=== PATIENT | female | born 1940 | race Caucasian/White ===

== ENCOUNTER 2024-05-19 20:13 | Inpatient (IN) | payer MEDICARE, SELFPAY ==
--- NOTE | 2024-05-19 20:14 | ED.GENADULT ---
HPI - General Adult General Time Seen by Provider: 20:14 Date Seen: 05/19/24 Chief complaint: Abdominal Pain Stated complaint: Abdominal pain--diarrhea, vomiting Time Seen by Provider: 05/19/24 20:14 Source: patient, RN notes reviewed and old records reviewed Mode of arrival: ambulatory Limitations: no limitations History of Present Illness HPI narrative: 83-year-old female who presents today with nausea, vomiting, diarrhea. This started day before yesterday. Patient notes couple episodes of vomiting as well as diarrhea, generalized abdominal pain localized in the right lower quadrant. No fevers, no known ill contacts. No blood in the stool and no blood in her vomit. Denies chest pain, shortness of breath, fevers, urinary symptoms. Has not taken anything for this. Related Data Allergies Allergy/AdvReac Type Severity Reaction Status Date / Time No Known Drug Allergies Allergy Verified 05/19/24 20:27 [facility] Social History Smoking Status: Never smoker Do you use any of these nicotine containing products: None Second hand tobacco smoke exposure: No How often do you have a drink containing alcohol: never AUDIT-C Alcohol total score: 0 Non-prescribed substance use: denies use service: No Exam Narrative: Exam Narrative: General: Well-developed and well-nourished, no acute distress Head: Atraumatic and normocephalic Eyes: Pupils are equal reactive, extraocular motions intact, conjunctiva clear ENT: External nose and ears are normal, posterior pharynx without erythema or exudate Neck: No midline cervical tenderness, full spontaneous range of motion the neck, trachea midline, no adenopathy Heart: Tachycardic, 3 of 6 systolic murmur, occasional extrasystole Lungs: Clear to auscultation bilaterally without wheezes or crackles Abdomen: Soft, mild diffuse tenderness with right lower quadrant tenderness, nondistended with active bowel sounds Musculoskeletal: No tenderness, deformity, or edema Neurologic: Awake, alert, and oriented x3, no gross focal neurologic deficits, cranial nerves intact as tested Psych: Mood and affect are appropriate Skin: No rashes Const: Vital Signs, click to edit/add: Vital Signs - 24 hr 05/19/24 20:18 05/19/24 22:30 05/19/24 23:00 Temperature 98.4 F Pulse Rate [Right Radial] 107 H 114 H 113 H Respiratory Rate 16 20 18 Blood Pressure [Ri ght Upper Arm] 134/81 144/73 H 149/82 H Pulse Oximetry 96 93 93 Oxygen Delivery Me thod Room Air Room Air Room Air Course Course ED Course: Reviewed most recent primary care visit from December 2023 which was for hip pain radiating into the back, thought to be related to piriformis syndrome, and patient was started on Solu-Medrol. Patient presents today with vomiting, abdominal pain, on and diarrhea. On initial exam she is tachycardic but afebrile with normal blood pressure. She has generalized abdominal tenderness with some localization of the right lower quadrant. Patient does still have for intra-abdominal organs. Labs ordered along with Zofran, fluids, CT of the abdomen and pelvis. Reevaluation(s) Time of Reevaluation #1: 21:42 Reevaluation #1: EKG independently interpreted by me performed at 9:37 p.m. demonstrates sinus rhythm rate 92, first-degree AV block with left bundle-branch block, no acute ischemic changes, QTC 494, ND 224. Compared to prior of August 2018, left bundle-branch block is new. Labs independently interpreted by me with leukocytosis white blood cell count 19.2, lactate 1.5. Time of Reevaluation #2: 22:02 Reevaluation #2: Labs independently interpreted by me with normal hepatic panel, normal lipase, mild hyponatremia. Time of Reevaluation #3: 22:20 Reevaluation #3: A CT scan of the abdomen and pelvis independently interpreted by me demonstrates findings of acute appendicitis with no free air noted.. Will discuss with General surgery once CT scan is read. 22:[address] scan agrees with my initial interpretation of acute appendicitis without perforation. Care was discussed with Dr. Leon, general surgery. Patient will be given Zosyn and plan for admission and likely surgery in the morning. 23:42 care discussed with [facility] hospitalist for admission Vital Signs Vital signs: Initial Vital Signs Temperature 98.4 F 05/19/24 20:18 Temperature Source Temporal Artery Scan 05/19/24 20:18 Pulse Rate 107 H 05/19/24 20:18 Pulse Rhythm Regular 05/19/24 20:18 Respiratory Rate 16 05/19/24 20:18 Blood Pressure 134/81 05/19/24 20:18 Blood Pressure Mean 98 05/19/24 20:18 Pulse Oximetry 96 05/19/24 20:18 Oxygen Delivery Method Room Air 05/19/24 20:18 Vital Signs Temperature 98.4 F 05/19/24 20:18 Pulse Rate 107 H 05/19/24 20:18 Respiratory Rate 16 05/19/24 20:18 Blood Pressure 134/81 05/19/24 20:18 Pulse Oximetry 96 05/19/24 20:18 Oxygen Delivery Method Room Air 05/19/24 20:18 Temperature 98.4 F 05/19/24 20:18 Pulse Rate 113 H 05/19/24 23:00 Respiratory Rate 18 05/19/24 23:00 Blood Pressure 149/82 H 05/19/24 23:00 Pulse Oximetry 93 05/19/24 23:00 Oxygen Delivery Method Room Air 05/19/24 23:00 Medications Administered Medications: Generic Name Dose Route Start Last Admin Trade Name Freq PRN Reason Stop Dose Admin Sodium Chloride 1,000 mls @ 1,000 mls/hr 05/19/24 21:00 05/19/24 22:42 0.9 % Sodium Chloride 1000 Ml IV 05/19/24 21:59 Infused .Q1H JOSEPH Infusion Piperacillin Sod/Tazobactam 100 mls @ 100 mls/hr 05/19/24 22:42 05/19/24 22:57 Sod 3.375 gm/ Sodium Chloride IVPB 05/19/24 22:43 100 mls/hr ONCE ONE Administration Ondansetron HCl 4 mg 05/19/24 20:54 05/19/24 21:25 Ondansetron 2 Mg/Ml Inj IVP 05/19/24 20:55 4 mg ONCE ONE Administration Medical Decision Making Lab Data Labs: Lab Results 05/19/24 Range/Units 21:15 WBC 19.20 H (4.50-11.00) K/uL RBC 4.72 (4.00-5.20) m/uL Hgb 14.5 (12.0-16.0) gm/dL Hct 42.8 (33.0-51.0) % MCV 91 (80-100) fL MCH 31 (26-34) pg MCHC 34 (32-36) gm/dL RDW Coeff of Isa 13.3 (11.5-15.5) % Plt Count 204 (140-440) K/uL Neut % (Auto) 87.7 H (42.0-72.0) % Lymph % (Auto) 5.8 L (20-44) % [place] % (Auto) 5.8 (0.0-11.0) % Eos % (Auto) 0.1 (0.0-7.0) % Baso % (Auto) 0.1 (0.0-3.0) % Neut # (Auto) 16.80 H (1.7-7.0) K/uL Lymph # (Auto) 1.10 (0.90-2.90) K/uL [place] # (Auto) 1.10 H (0.00-0.90) K/UL Eos # (Auto) 0.00 (0.00-0.50) K/uL Baso # (Auto) 0.00 (0.00-0.30) K/uL Abs Immat Gran (auto) 0.10 (0.00-0.30) K/uL Imm/Tot Granulo (auto) 0.5 % Sodium 129 L (135-149) mmol/L Potassium 3.7 (3.6-5.1) mmol/L Chloride 99 (96-114) mmol/L Carbon Dioxide 21 (20-32) mmol/L Anion Gap 9 (7-15) mEq/L BUN 13 (7-30) mg/dL Creatinine 0.7 (0.5-1.5) mg/dL Estimated Creat Clear 41.49 Estimated GFR 85 ml/min Glucose 173 H (60-115) mg/dL Lactate 1.5 (0.5-1.9) mmol/L Calcium 9.5 (8.4-10.6) mg/dL Magnesium 1.8 (1.5-2.6) mg/dL Total Bilirubin 2.0 H (0.1-1.5) mg/dL Direct Bilirubin 0.4 (0.0-0.5) mg/dL AST 16 (12-35) U/L ALT 22 (4-35) U/L Alkaline Phosphatase 74 (40-150) U/L Total Protein 6.7 (6.0-8.3) g/dL Albumin 4.0 (3.3-5.0) g/dL Lipase 254 (23-300) U/L Discharge Plan Discharge Clinical Impression: Acute appendicitis, History of coronary angioplasty with insertion of stent
[2024-05-19 20:18] VITALS: BP 134/81; PULSE 107; RESP 16; TEMP 36.9; O2SAT 96; BMI 27.4
--- NOTE | 2024-05-19 20:54 | CRLHL7_ITS ---
For Patients: As a result of the Century Cures Act, medical imaging exams and procedure reports are released immediately into your electronic medical record. You may view this report before your referring provider. If you have questions, please contact your health care provider. INDICATION: Right lower quadrant abdominal pain, diarrhea. TECHNIQUE: CT abdomen and pelvis acquired with 89 cc of Isovue 370 IV contrast. COMPARISON: CT chest, abdomen, and pelvis 09/05/2018. FINDINGS: Lower chest: Mild bibasilar scarring versus atelectasis. Coronary artery calcification. Liver: Unremarkable. Normal in size and attenuation. No suspicious masses. Gallbladder and bile ducts: Unremarkable. No stones or inflammation. No biliary dilatation. Pancreas: Unremarkable. No mass or inflammation. Spleen: Unremarkable. Normal in size. No masses. Adrenal glands: Unremarkable. No nodules. Kidneys: Unremarkable. No suspicious masses, stones, or hydronephrosis. GI tract: Dilated, fluid-filled appendix measuring up to 12 mm with moderate to severe surrounding inflammatory changes. No evidence for perforation or abscess formation. The small bowel is unremarkable. Small air-fluid levels throughout the colon without mural thickening. Vasculature: Normal caliber abdominal aorta with moderate to severe atherosclerotic calcification. Mesenteric arteries are patent. Lymph nodes: No lymphadenopathy. Peritoneum/Abdominal Wall: Unremarkable. No free air or significant free fluid. Pelvis: Unremarkable. Bones: Chronic mild L2 compression fracture. Multilevel spondylosis. No acute findings. IMPRESSION: 1. Acute uncomplicated appendicitis in the right lower quadrant. 2. Multiple small air-fluid levels throughout the colon without mural thickening, possibly reactive to the patient`s acute appendicitis or represent a concomitant diarrheal illness. Please note that all CT scans at this facility use dose modulation, iterative reconstruction, and/or weight-based dosing when appropriate to reduce radiation dose to as low as reasonably achievable. Dictated by Aaron Hobbs MD @ 05/19/2024 10:39:28 PM (Electronically Signed)
[2024-05-19] MEDS: ONDANSETRON 2 MG/ML inj 4 MG IVP (21:25)
[2024-05-19] MEDS: 0.9 % SODIUM CHLORIDE 1000 ml 1,000 ML IV (21:26)
[2024-05-19 21:32] LABS: Lactate* 1.5 mmol/L (0.5-1.9)
[2024-05-19 21:33] LABS: Basophils Percent Auto 0.1 % (0.0-3.0); Eosinophils Percent Auto 0.1 % (0.0-7.0); Hematocrit 42.8 % (33.0-51.0); Hemoglobin* 14.5 gm/dL (12.0-16.0); Immature Granulocytes Pct Auto 0.5 %; Lymphocytes Percent Auto 5.8 % (20-44); Mean Corpuscular HGB Conc 34 gm/dL (32-36); Mean Corpuscular Hemoglobin 31 pg (26-34); Mean Corpuscular Volume 91 fL (80-100); Monocytes Percent Auto 5.8 % (0.0-11.0); Neutrophils Percent Auto 87.7 % (42.0-72.0); Platelet Count* 204 K/uL (140-440); RDW Coefficient of Variation % 13.3 % (11.5-15.5); Red Blood Count 4.72 m/uL (4.00-5.20)
[2024-05-19 21:36] LABS: Slide Review Reflex No
[2024-05-19 21:47] LABS: Chloride* 99 mmol/L (96-114); Potassium* 3.7 mmol/L (3.6-5.1); Sodium* 129 mmol/L (135-149)
[2024-05-19 21:49] LABS: Anion Gap 9 mEq/L (7-15); Carbon Dioxide* 21 mmol/L (20-32); Creatinine* 0.7 mg/dL (0.5-1.5); Est. Creatinine Clearance* 41.49; Estimated Glomerular Filt Rate 85 ml/min
[2024-05-19 21:50] LABS: Alanine Aminotransferase* 22 U/L (4-35); Alkaline Phosphatase* 74 U/L (40-150); Aspartate Amino Transferase* 16 U/L (12-35); Bilirubin Direct* 0.4 mg/dL (0.0-0.5); Blood Urea Nitrogen* 13 mg/dL (7-30); Calcium* 9.5 mg/dL (8.4-10.6); Glucose* 173 mg/dL (60-115); Lipase* 254 U/L (23-300); Magnesium* 1.8 mg/dL (1.5-2.6); Total Protein* 6.7 g/dL (6.0-8.3)
[2024-05-19 22:30] VITALS: BP 144/73; PULSE 114; RESP 20; O2SAT 93
[2024-05-19] MEDS: PIPERACILLIN/TAZOBACTAM 3.375 GM in 0.9 % SODIUM CHLORIDE Mini-bag 100 ML IVPB (22:57)
[2024-05-19 23:00] VITALS: BP 149/82; PULSE 113; RESP 18; O2SAT 93
[2024-05-19 23:39] VITALS: BP 134/67; PULSE 108; RESP 18; TEMP 37.5; O2SAT 94; BMI 31.2
[2024-05-19 23:40] LABS: Appearance Urine Clear (Clear); Bilirubin Urine Negative (Negative); Blood Urine Trace-intact (Negative); Color Urine Yellow (Yellow); Glucose Urine Negative (Negative); Ketones Urine 1+ (Negative); Leukocyte Esterase Urine Negative (Negative); Nitrite Urine Negative (Negative); Protein Urine 1+ (Negative); Urobilinogen Urine 0.2 (0.2-1.0)
[2024-05-19 23:55] LABS: RBC Urine 0-2 (0-2); Squamous Epithelial Cell Urine Few (None-Few); WBC Urine 0-2 (0-5)
[2024-05-20] VITALS (22 sets, daily range): BP systolic 120–155; BP diastolic 54–89; PULSE 88–104; RESP 14–21; TEMP 36.3–38.4; O2SAT 91–95
--- NOTE | 2024-05-20 00:34 | W.PM.THH&P_ITS ---
Telehealth- H&P: HPI History of Present Illness Date Seen: 05/20/24 Chief complaint: Abdominal pain--diarrhea, vomiting Narrative: Shirlene Pereyra is seen as an Interactive Telehealth visit. Shirlene Pereyra is a 83 year old male who is Seen in her hospital room at [facility] with the assistance of nursing staff. She has been admitted through the emergency room. She has multiple family members present. She is sitting up in the chair alert awake interactive smiling no acute distress. She tells me she has had 2 days of abdominal pain bloating moving more towards her right lower quadrant. She has vomited and had diarrhea there has not been any blood. Today is going to do day 3. She ultimately decided to come into the emergency room. She was evaluated there found to have an elevated white blood cell count. CT scan of the abdomen was consistent with appendicitis. She has been accepted by the surgical service for appendectomy in the morning. She does have a past medical history most significant for coronary artery disease and stent in 2019. She has been chest pain free since then. 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 She does have an echocardiogram done earlier this year which showed some mild aortic stenosis but no other significant findings. She does not have any other complaints or concerns. Review of Systems Narrative: A complete Review of systems was performed, pertinent positives and negatives are in the history of present illness. [facility] Social History Smoking Status: Never smoker Do you use any of these nicotine containing products: None Second hand tobacco smoke exposure: No How often do you have a drink containing alcohol: never AUDIT-C Alcohol total score: 0 Non-prescribed substance use: denies use service: No Meds Home Medications and Allergies Allergies Allergy/AdvReac Type Severity Reaction Status Date / Time No Known Drug Allergies Allergy Verified 05/19/24 20:27 Exam Narrative Exam Narrative: Physical Exam GENERAL: ?vital signs reviewed, well developed and nourished, in no distress HEENT: pupils are equal round and reactive to light, extraocular movements are grossly within normal limits and oral mucosa is moist. NECK: Supple without lymphadenopathy or thyromegaly according to nursing staff examination observation HEART: Regular rate and rhythm without any rubs, murmurs, or gallops. LUNGS: Clear to auscultation bilaterally with good air movement throughout ABDOMEN: Observation from nurse assisted exam, She is tender in the right lower quadrant mild rebound no guarding bowel sounds are present EXTREMITIES: Strength and sensation is observed to be grossly within normal limits in the upper and lower extremities.? No focal strength deficit is observed. SKIN:? Observed warm and dry with color normal Const Vital Signs, click to edit/add: Vital Signs - 24 hr 05/19/24 20:18 05/19/24 22:30 05/19/24 23:00 Temperature 98.4 F Pulse Rate [Pulse Oximeter] Pulse Rate [Right Radial] 107 H 114 H 113 H Respiratory Rate 16 20 18 Blood Pressure [Left Arm] Blood Pressure [Right Upper Arm] 134/81 144/73 H 149/82 H Pulse Oximetry 96 93 93 Oxygen Delivery Method Room Air Room Air Room Air 05/19/24 23:39 Temperature 99.5 F Pulse Rate [Pulse Oximeter] 108 H Pulse Rate [Right Radial] Respiratory Rate 18 Blood Pressure [Left Arm] 134/67 Blood Pressure [Right Upper Arm] Pulse Oximetry 94 Oxygen Delivery Method Room Air Hospitalist - H&P: Result Labs Labs: Short CBC 05/19/24 Range/Units 21:15 WBC 19.20 H (4.50-11.00) K/uL Hgb 14.5 (12.0-16.0) gm/dL Hct 42.8 (33.0-51.0) % Plt Count 204 (140-440) K/uL BMP 05/19/24 21:15 Sodium 129 L Potassium 3.7 Chloride 99 Carbon Dioxide 21 BUN 13 Creatinine 0.7 Glucose 173 H Calcium 9.5 Liver Function 05/19/24 Range/Units 21:15 Total Bilirubin 2.0 H (0.1-1.5) mg/dL Direct Bilirubin 0.4 (0.0-0.5) mg/dL AST 16 (12-35) U/L ALT 22 (4-35) U/L Alkaline Phosphatase 74 (40-150) U/L Albumin 4.0 (3.3-5.0) g/dL Urine 05/19/24 Range/Units 22:20 Urine Color Yellow (Yellow) Urine Appearance Clear (Clear) Urine pH 7.0 (5.0-8.5) Ur Specific [place] 1.010 (1.000-1.030) Urine Protein 1+ A (Negative) Urine Glucose (UA) Negative (Negative) Assessment and Plan Assessment and plan (1) Hyponatremia: Status: Acute Plan acute appendicitis?at this point we will have patient n.p.o., pain control with IV hydromorphone, oxycodone if needed. Will use Zosyn as an antibiotic surgical consult has been placed through the emergency room. Will start normal saline over the evening. Hyponatremia?etiology unclear her home meds have not been reconciled yet would be the most likely cause. Normal saline over the evening we will plan to recheck a Chem-8 early in the morning. Anticipate this to rise with normal saline. Known coronary artery disease?has been symptom-free. She is at mildly increased risk with surgery but I do not think this precludes. She is generally active generally healthy. No signs of active coronary artery disease DVT prophylaxis will go ahead and start subcutaneous heparin. CODE STATUS was discussed on admission she wishes to be a full code. Her home medications will need to be reviewed once they are available. Telehealth: Statement Statement Telehealth Visit: Today's History and Physical is provided via interactive telehealth by Zachariah Licona DO.? Patient is located at [facility].? Provider is located at [facility].? Nursing staff assisted with the patient's exam. The visit being done today meets criteria for a telehealth visit and the patient or patient?s parent/guardian is aware the visit is a telehealth visit. Camera Start Time: 11:50 Camera End Time: 00:10
[2024-05-20] MEDS: HYDROmorphone 0.5 mg/0.5 ml inj IVP ×3 (01:28→16:10)
[2024-05-20] MEDS: 0.9 % SODIUM CHLORIDE 1000 ml 1,000 ML 75 ML IV (01:28)
[2024-05-20] MEDS: PIPERACILLIN/TAZOBACTAM 4.5 GM in 0.9 % SODIUM CHLORIDE Mini-bag 100 ML IVPB (04:59)
--- NOTE | 2024-05-20 05:23 | PC.NURSE ---
Pt admitted overnight for appendicytis. Going to surgery this am. VSS except Temp which jumped to 101.1 at 05 this am. She is on Zosyn. Up with SBA to BR. She has been NPO since midnight.
--- NOTE | 2024-05-20 07:52 | P.GSCN_ITS ---
History of Present Illness Consult details Date Seen: 05/20/24 Consult date: 05/20/24 Narrative: Patient presented to the emergency department last night with severe right lower quadrant abdominal pain. The pain started about 3 days ago. It was always in the lower area, but then became worse on the right side. She denies any fevers at home but does think she had a fever last night in the hospital. She has never had pain like this before. Did have a couple episodes of emesis at home, none overnight. Some diarrhea. Does report a decrease in appetite. She has never had abdominal surgery before. She does take a daily baby aspirin, no other blood thinners. Review of Systems Status of ROS: Reports: 10 or more systems reviewed and unremarkable except as noted in History and below PFSH PFS Social History What is your current living situation?: I presently have a place to live Problems where you live: no known problems In the past 12 months, utilities in danger of being shut off: no In past 12 months, lack of transportation kept you from medical appts, meetings, work, or getting things needed for daily living: no In the past 12 mos, have been you worried that your food would run out before you had money to buy more?: never true In the past 12 mos, the food you bought just didn't last and you didn't have money to buy more?: never true Smoking Status: Never smoker Do you use any of these nicotine containing products: None Second hand tobacco smoke exposure: No How often do you have a drink containing alcohol: monthly or less Alcohol type: wine How many standard drinks containing alcohol do you have on a typical day: 1 or 2 How often do you have six or more drinks on one occasion: Never AUDIT-C Alcohol total score: 1 Non-prescribed substance use: denies use How often does anyone, including family, friends and others, physically hurt you : never How often does anyone, including family, friends and others, insult or talk down to you: never How often does anyone, including family, friends and others, threaten you with harm: never How often does anyone, including family, friends and others, scream or curse at you: never service: No Meds Home Medications and Allergies Allergies Allergy/AdvReac Type Severity Reaction Status Date / Time No Known Drug Allergies Allergy Verified 05/19/24 20:27 Exam Narrative: Exam Narrative: General: Alert and oriented, no acute distress Respiratory: Equal breath rise bilaterally, maintained on room air CV: Tachycardic, well perfused Abdomen: Soft, tender to palpation right lower quadrant with some guarding, no rebound. Const: Vital Signs, click to edit/add: Vital Signs - 24 hr 05/19/24 20:18 05/19/24 22:30 05/19/24 23:00 Temperature 98.4 F Pulse Rate [Pulse Oximeter] Pulse Rate [Right Pulse Oximeter] Pulse Rate [Right Radial] 107 H 114 H 113 H Respiratory Rate 16 20 18 Blood Pressure [Le ft Arm] Blood Pressure [Ri ght Upper Arm] 134/81 144/73 H 149/82 H Pulse Oximetry 96 93 93 Oxygen Delivery Me thod Room Air Room Air Room Air 05/19/24 23:39 05/20/24 05:19 05/20/24 06:59 Temperature 99.5 F 101.1 F H 99.1 F Pulse Rate [Pulse Oximeter] 108 H Pulse Rate [Right Pulse Oximeter] 101 H Pulse Rate [Right Radial] Respiratory Rate 18 18 Blood Pressure [Le ft Arm] 134/67 132/61 Blood Pressure [Ri ght Upper Arm] Pulse Oximetry 94 93 Oxygen Delivery Me thod Room Air Room Air Results Labs Labs: Abnormal lab results 05/19/24 05/19/24 Range/Units 21:15 22:20 WBC 19.20 H (4.50-11.00) K/uL Neut % (Auto) 87.7 H (42.0-72.0) % Lymph % (Auto) 5.8 L (20-44) % Neut # (Auto) 16.80 H (1.7-7.0) K/uL [place] # (Auto) 1.10 H (0.00-0.90) K/UL Sodium 129 L (135-149) mmol/L Glucose 173 H (60-115) mg/dL Total Bilirubin 2.0 H (0.1-1.5) mg/dL Urine Protein 1+ A (Negative) Urine Ketones 1+ A (Negative) Urine Blood Trace-intact A (Negative) Diabetes panel 05/19/24 Range/Units 21:15 Sodium 129 L (135-149) mmol/L Potassium 3.7 (3.6-5.1) mmol/L Chloride 99 (96-114) mmol/L Carbon Dioxide 21 (20-32) mmol/L BUN 13 (7-30) mg/dL Creatinine 0.7 (0.5-1.5) mg/dL Glucose 173 H (60-115) mg/dL Calcium 9.5 (8.4-10.6) mg/dL AST 16 (12-35) U/L ALT 22 (4-35) U/L Alkaline Phosphatase 74 (40-150) U/L Total Protein 6.7 (6.0-8.3) g/dL Albumin 4.0 (3.3-5.0) g/dL Calcium panel 05/19/24 Range/Units 21:15 Calcium 9.5 (8.4-10.6) mg/dL Albumin 4.0 (3.3-5.0) g/dL Pituitary panel 05/19/24 Range/Units 21:15 Sodium 129 L (135-149) mmol/L Potassium 3.7 (3.6-5.1) mmol/L Chloride 99 (96-114) mmol/L Carbon Dioxide 21 (20-32) mmol/L BUN 13 (7-30) mg/dL Creatinine 0.7 (0.5-1.5) mg/dL Glucose 173 H (60-115) mg/dL Calcium 9.5 (8.4-10.6) mg/dL Adrenal panel 05/19/24 Range/Units 21:15 Sodium 129 L (135-149) mmol/L Potassium 3.7 (3.6-5.1) mmol/L Chloride 99 (96-114) mmol/L Carbon Dioxide 21 (20-32) mmol/L BUN 13 (7-30) mg/dL Creatinine 0.7 (0.5-1.5) mg/dL Glucose 173 H (60-115) mg/dL Calcium 9.5 (8.4-10.6) mg/dL Total Bilirubin 2.0 H (0.1-1.5) mg/dL AST 16 (12-35) U/L ALT 22 (4-35) U/L Alkaline Phosphatase 74 (40-150) U/L Total Protein 6.7 (6.0-8.3) g/dL Albumin 4.0 (3.3-5.0) g/dL All other labs normal. Imaging Abdomen CT scan report/results: report reviewed and image reviewed Progress Note:A&P Assessment and plan (1) Acute appendicitis: Status: Acute Assessment and Plan: The patient presented with a history, exam and imaging findings consistent with acute appendicitis. On CT imaging she has a lot of inflammatory fluid in the right lower quadrant, suspicious for possible perforation. Her labs are significant for a leukocytosis (19). She has hyponatremia at 129 and an elevated total bilirubin 2.0 which is largely indirect and likely secondary to her current illness. I discussed the treatment options with the patient including non-surgical and surgical options. I recommended laparoscopic appendectomy. The risks of surgery were reviewed with the patient including the risks of bleeding, post-operative wound or intra-abdominal infection, injury to abdominal structures and possible conversion to an open operation. We also discussed anesthetic complications including MO, stroke, respiratory failure and blood clots. The patient voiced an understanding of our conversation, had the opportunity to ask questions, agreed to accept the risks of surgery and asked that we proceed with surgery. -OR for laparoscopic appendectomy
[2024-05-20] MEDS: BUPIVACAINE 0.25% 30 ML 20 ML INJECTION (08:30)
[2024-05-20 08:35] LABS: Chloride* 104 mmol/L (96-114); Sodium* 134 mmol/L (135-149)
[2024-05-20 08:36] LABS: Potassium* 3.2 mmol/L (3.6-5.1)
[2024-05-20 08:38] LABS: Creatinine* 0.8 mg/dL (0.5-1.5); Est. Creatinine Clearance* 41.49; Estimated Glomerular Filt Rate 72 ml/min
[2024-05-20 08:39] LABS: Anion Gap 9 mEq/L (7-15); Blood Urea Nitrogen* 13 mg/dL (7-30); Calcium* 8.3 mg/dL (8.4-10.6); Carbon Dioxide* 21 mmol/L (20-32); Glucose* 152 mg/dL (60-115)
--- NOTE | 2024-05-20 09:34 | PM.GSPRC ---
Operative Note Date of procedure: 05/20/24 Pre-op diagnosis: Acute appendicitis Post-op diagnosis: Same, necrosis of the appendix with perforation Type of Procedure: Laparoscopic appendectomy Indications: Patient is an 83-year-old female who presented to the emergency department with clinical workup and history consistent for acute appendicitis. Risks and benefits of operative intervention were discussed at length with the patient. Risks included but was not limited to: Bleeding, infection, risk of damage to surrounding structures, possible need for additional procedures, possible need to convert to an open operation and postoperative complications such as pneumonia, pulmonary emboli or IN. All questions and concerns were addressed with the patient agreeing to proceed. Procedure Description: After discussing the risks and benefits of the procedure, the patient signed informed consent.? The operative site was marked and the patient was brought to the operating room and placed on the operating table in supine position.? Care was taken to pad the patient's pressure points.?? The patient was then intubated by anesthesia.?? The operative site was then prepped and draped in the usual sterile fashion.? A time-out was then performed. Entrance to the abdomen was obtained via a 5 mm optical trocar in the left upper quadrant. The abdomen was insufflated and briefly surveyed for any signs of injury. There were none. A 12 mm port was placed lateral to the umbilicus as well as a 5 mm port in the left lower quadrant under direct vision. The patient was then placed in Trendelenburg position with the right side up. The small bowel was gently moved out of the way. The anti mesenteric fat pad was identified on the terminal ileum. This appeared inflamed and adhered to wear the appendix was encapsulated. Using blunt dissection this was peeled off of the appendix. This revealed a necrotic appendix body, inflamed mesenteric fat and some stool contamination with a perforation in the midbody. The appendix was grasped and gently pulled into view. Using hook cautery surrounding inflammatory adhesions were carefully taken down. A small area of pinpoint bleeding was controlled with two 5 mm clips. The base of the appendix was then identified, the tissue was healthy in appearance and did not appear overtly necrotic. The base was clearly seen entering into the cecum. Using a [place] a mesenteric window was created. A 30 mm endo-ANICETO purple load stapler was used to transect the appendix base. The staple line was inspected, no evidence of bleeding and appeared intact. The mesentery was then transected with a 30 mm endo-ANICETO vascular load stapler. A small area of arterial bleeding was identified and two 5 mm clips applied. The appendix was then removed from the abdomen using an Endo-Catch bag. A small amount of stool contamination was also removed from the abdomen. The abdomen was then irrigated with warm saline. Hemostasis was excellent at the end of the case. The 12 mm port site fascia was closed with 0 Vicryl suture via the Vincent-Cornelius. All other ports were removed from the abdomen under direct visualization. The skin was then closed with absorbable subcuticular suture. Sterile dressings were then applied. Instrument sponge and needle counts were correct at the end of the case. The patient was then woken and transported to the PACU in stable condition. Findings: Acute appendicitis, necrosis of the appendix body with perforation. Anesthesia: GETA Surgeon: Fern Leon MD Estimated blood loss (mL): 25 Specimen: Appendix Condition: stable Disposition: PACU
--- NOTE | 2024-05-20 09:47 | P.ANES_ITS ---
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
--- NOTE | 2024-05-20 09:47 | W.ANESCHARGE ---
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
[2024-05-20] MEDS: PIPERACILLIN/TAZOBACTAM 3.375 GM in 0.9 % SODIUM CHLORIDE Mini-bag 100 ML IVPB ×3 (12:00→23:10)
[2024-05-20] MEDS: 0.9 % SODIUM CHLORIDE 1000 ml 1,000 ML 100 ML IV (12:00)
[2024-05-20] MEDS: OXYCODONE 5 MG TABLET PO ×2 (17:55→23:11)
--- NOTE | 2024-05-20 18:38 | PC.NURSE ---
The patient is pleasant and A&O. Vss on RA, 2 lap sites wit small amount of blood under steri strips. The patient rates her pain consistently @ 6/10, although she claims it is only at that when she coughs or takes a deep breathe. No N/V. Tolerating a clear liquid diet with no issues, voiding and no other complaints noted. SBA to BR. Call light within reach. Janie ENGLE BSN
[2024-05-20] MEDS: ENOXAPARIN 30 MG/0.3ML INJ SUBCUT (23:10)
[2024-05-21] VITALS (8 sets, daily range): BP systolic 107–143; BP diastolic 50–76; PULSE 70–100; RESP 16–20; TEMP 36.1–37.7; O2SAT 89–95
[2024-05-21] MEDS: 0.9 % SODIUM CHLORIDE 1000 ml 1,000 ML 75 ML IV ×3 (03:11→20:29)
[2024-05-21] MEDS: PIPERACILLIN/TAZOBACTAM 3.375 GM in 0.9 % SODIUM CHLORIDE Mini-bag 100 ML IVPB ×4 (05:33→23:22)
[2024-05-21] MEDS: ACETAMINOPHEN 325 MG TABLET PO (05:34)
[2024-05-21] MEDS: OXYCODONE 5 MG TABLET PO ×3 (05:35→20:29)
--- NOTE | 2024-05-21 05:57 | PC.NURSE ---
Pt pleasant and cooperative. Up with SBA to BR. Has been running low grade Temp. 99-100. doing IS to 1500. Tyljaronl given this am.
[2024-05-21 08:40] LABS: Basophils Absolute Auto 0.01 K/uL (0.00-0.30); Basophils Percent Auto 0.1 % (0.0-3.0); Eosinophils Absolute Auto 0.02 K/uL (0.00-0.50); Eosinophils Percent Auto 0.2 % (0.0-7.0); Hematocrit 36.1 % (33.0-51.0); Hemoglobin* 11.8 gm/dL (12.0-16.0); Immature Granulocytes Abs Auto 0.04 K/uL (0.00-0.30); Immature Granulocytes Pct Auto 0.4 %; Lymphocytes Percent Auto 7.7 % (20-44); Mean Corpuscular HGB Conc 33 gm/dL (32-36); Mean Corpuscular Hemoglobin 30 pg (26-34); Mean Corpuscular Volume 92 fL (80-100); Neutrophils Percent Auto 87.6 % (42.0-72.0); Platelet Count* 163 K/uL (140-440); RDW Coefficient of Variation % 13.6 % (11.5-15.5); Red Blood Count 3.92 m/uL (4.00-5.20); Slide Review Reflex No; White Blood Count* 9.27 K/uL (4.50-11.00)
[2024-05-21 08:57] LABS: Chloride* 101 mmol/L (96-114); Potassium* 3.2 mmol/L (3.6-5.1); Sodium* 129 mmol/L (135-149)
[2024-05-21 09:00] LABS: Anion Gap 5 mEq/L (7-15); Blood Urea Nitrogen* 17 mg/dL (7-30); Carbon Dioxide* 23 mmol/L (20-32); Est. Creatinine Clearance* 41.49; Estimated Glomerular Filt Rate 55 ml/min
[2024-05-21 09:01] LABS: Calcium* 8.3 mg/dL (8.4-10.6); Glucose* 116 mg/dL (60-115)
--- NOTE | 2024-05-21 10:52 | PM.GSPN ---
Subjective Subjective Date Seen: 05/21/24 Interval history: Patient is doing okay this morning. She does have some pain on the right side when she moves, but this is improved compared to before surgery. She has been tolerating clear liquids. Passing gas from below. She does report no significant appetite and ?burping a lot?. She denies any current nausea. She has been up walking the halls. The incision just lateral of her belly button has been leaking so a dressing was placed. Exam Narrative: Exam Narrative: General: Alert and oriented, no acute distress Abdomen: Soft, tender to palpation right lower quadrant, no guarding or rebound. Left side small incisions with Steri-Strips in place. Larger incision with dressing over top saturated with serous fluid. Dressing was removed and Steri-Strips. A compression dressing was replaced. No erythema or induration, no concern for infection. Const: Vital Signs, click to edit/add: Vital Signs - 24 hr 05/20/24 11:00 05/20/24 11:15 05/20/24 11:30 Temperature 97.7 F 97.7 F 97.8 F Pulse Rate 91 100 92 Pulse Rate [Pulse Oximeter] Pulse Rate [Right Pulse Oximeter] Respiratory Rate 16 18 16 Blood Pressure 150/89 H 138/67 132/65 Blood Pressure [Le ft Arm] Pulse Oximetry 91 93 91 Oxygen Delivery Me thod Nasal Cannula Room Air Room Air Oxygen Flow Rate 2 05/20/24 12:00 05/20/24 12:30 05/20/24 13:30 Temperature 99.0 F 99.1 F 99.1 F Pulse Rate 104 H 104 H 100 Pulse Rate [Pulse Oximeter] Pulse Rate [Right Pulse Oximeter] Respiratory Rate 16 16 14 Blood Pressure 129/61 129/61 143/82 H Blood Pressure [Le ft Arm] Pulse Oximetry 93 92 92 Oxygen Delivery Me thod Room Air Oxygen Flow Rate 05/20/24 14:30 05/20/24 15:00 05/20/24 15:30 Temperature 99.1 F 98.6 F Pulse Rate 93 95 Pulse Rate [Pulse Oximeter] Pulse Rate [Right Pulse Oximeter] Respiratory Rate 14 16 Blood Pressure 150/62 H 148/65 H Blood Pressure [Le ft Arm] 155/67 H Pulse Oximetry 92 93 Oxygen Delivery Me thod Room Air Oxygen Flow Rate 05/20/24 16:30 05/20/24 19:00 05/21/24 00:00 Temperature 98.6 F 98.1 F 99.1 F Pulse Rate 95 Pulse Rate [Pulse Oximeter] Pulse Rate [Right Pulse Oximeter] 95 90 Respiratory Rate 16 16 20 Blood Pressure 155/65 H Blood Pressure [Le ft Arm] 132/67 113/61 Pulse Oximetry 92 95 95 Oxygen Delivery Me thod Room Air Room Air Oxygen Flow Rate 05/21/24 03:00 05/21/24 05:34 05/21/24 07:00 Temperature 100 F H 99 F 98.0 F Pulse Rate Pulse Rate [Pulse Oximeter] 93 Pulse Rate [Right Pulse Oximeter] 100 Respiratory Rate 20 18 Blood Pressure Blood Pressure [Le ft Arm] 123/55 L 110/62 Pulse Oximetry 93 89 Oxygen Delivery Me thod Room Air Room Air Oxygen Flow Rate Labs/Imaging Labs Labs: WBC 9, sodium 129, potassium 3.4 Imaging Imaging: No new imaging Progress Note:A&P Assessment and plan (1) Acute appendicitis: Status: Acute Assessment and Plan: Patient is postop day 1 laparoscopic appendectomy for perforated appendicitis. She did have a low-grade temperature overnight. Her WBC has trended down to normal (19--9). She is tolerating clear liquids, but will hold off on advancing diet today, patient is high risk for postoperative ileus given the amount of intra-abdominal contamination. Will continue on IV antibiotics. Some drainage from her middle incision, serous. No concern for bleeding, likely postoperative fluid. Would expect this to gradually decrease over the next 1-2 days. No current concern for infection. -encourage ambulation -p.o. and IV pain meds as needed -continue IV Zosyn -continue to reinforce dressing as needed to middle incision -SCDs and Lovenox for DVT prophylaxis (2) Hyponatremia: Status: Acute Assessment and Plan: Patient admitted with sodium 129. This did improved to 134 with normal saline IV fluids. Today a recheck shows it is back down to 129. Patient does also have hypokalemia of 3.4. Unknown etiology. Hospitalist has been consulted and will help with management, appreciate their assistance.
--- NOTE | 2024-05-21 12:34 | PM.IMCN1 ---
Date of Consult Patient: Jorge Patient Consult date: 05/21/24 Requesting Physician: General Surgery Primary Care Provider: Olesya Rivera PA-C Consult Narrative Reason for consult: Electrolyte abnormalities Narrative: Shirlene Pereyra is a 83 year old female who presented to the hospital on 05/19 with abdominal pain, POD 1 from laparoscopic appendectomy with Dr. Leon of General Surgery. There were no anesthetic complications noted during procedure, appendix was noted to be perforated during procedure. Hospitalist team following given postoperative hyponatremia, hypokalemia, comorbidities. Admission Na of 129 on 05/19, up to 134 on 05/20, 129 again today. Asymptomatic. Last outpatient sodium was normal in 2022 per Epic Chart. Potassium 3.2, Mg pending. Starting clear liquid diet today. Heart rate has been variable (40s--90s throughout the day), TMax 100 this morning. Past medical history significant for: Essential HTN, hyperlipidemia PCP is Olesya Falk at the [facility]. 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 Review of Systems Status of ROS: Reports: 10 or more systems reviewed and unremarkable except as noted in History and below PFSH PFS Medical History (Updated 05/21/24 @ 12:53 by Saima Ruvalcaba MD) NSTEMI (non-ST elevated myocardial infarction) ?I21.4 - Non-ST elevation (NSTEMI) myocardial infarction (ICD-10) Hyperlipidemia ?E78.5 - Hyperlipidemia, unspecified (ICD-10) Essential hypertension ?I10 - Essential (primary) hypertension (ICD-10) Surgical History (Updated 05/21/24 @ 12:44 by Saima Ruvalcaba MD) Hx of appendectomy ?Z90.49 - Acquired absence of other specified parts of digestive tract (ICD-10) History of coronary angioplasty with insertion of stent ?Z95.5 - Presence of coronary angioplasty implant and graft (ICD-10) Social History What is your current living situation?: I presently have a place to live Problems where you live: no known problems In the past 12 months, utilities in danger of being shut off: no In past 12 months, lack of transportation kept you from medical appts, meetings, work, or getting things needed for daily living: no In the past 12 mos, have been you worried that your food would run out before you had money to buy more?: never true In the past 12 mos, the food you bought just didn't last and you didn't have money to buy more?: never true Smoking Status: Never smoker Do you use any of these nicotine containing products: None Second hand tobacco smoke exposure: No How often do you have a drink containing alcohol: monthly or less Alcohol type: wine How many standard drinks containing alcohol do you have on a typical day: 1 or 2 How often do you have six or more drinks on one occasion: Never AUDIT-C Alcohol total score: 1 Non-prescribed substance use: denies use How often does anyone, including family, friends and others, physically hurt you: never How often does anyone, including family, friends and others, insult or talk down to you: never How often does anyone, including family, friends and others, threaten you with harm: never How often does anyone, including family, friends and others, scream or curse at you: never service: No Meds Home Medications and Allergies Home Medications ?Medication ?Instructions ?Recorded ?Confirmed ?Type aspirin 81 mg tablet,delayed 81 mg PO DAILY 05/20/24 05/20/24 History release (Ecotrin Low Strength) atorvastatin 80 mg tablet 80 mg PO HS 05/20/24 05/20/24 History calcium carbonate (Oyster Shell 500 mg PO BID 05/20/24 05/20/24 History Calcium) cholecalciferol (vitamin D3) 50 50 mcg PO DAILY 05/20/24 05/20/24 History mcg (2,000 unit) capsule metoprolol succinate 25 mg 25 mg PO DAILY 05/20/24 05/20/24 History tablet,extended release 24 hr Allergies Allergy/AdvReac Type Severity Reaction Status Date / Time No Known Drug Allergies Allergy Verified 05/19/24 20:27 Exam Narrative: Exam Narrative: GEN: Alert and oriented, sitting comfortably in bedside chair HEENT: EOMIs bilaterally, no scleral icterus CV: RRR, No concerning murmurs R: LCTA bilaterally without concerning wheezing Ab: Distended, + bowel sounds Ext: wwp, no concerning edema Skin: No concerning skin lesions or rashes on exposed skin Neuro: Nonfocal Psych: Appropriate Const: Vital Signs, click to edit/add: Vital Signs - 24 hr 05/20/24 13:30 05/20/24 14:30 05/20/24 15:00 Temperature 99.1 F 99.1 F Pulse Rate 100 93 Pulse Rate [Pulse Oximeter] Pulse Rate [Right Pulse Oximeter] Respiratory Rate 14 14 Blood Pressure 143/82 H 150/62 H Blood Pressure [Le ft Arm] 155/67 H Pulse Oximetry 92 92 Oxygen Delivery Me thod Room Air 05/20/24 15:30 05/20/24 16:30 05/20/24 19:00 Temperature 98.6 F 98.6 F 98.1 F Pulse Rate 95 95 Pulse Rate [Pulse Oximeter] Pulse Rate [Right Pulse Oximeter] 95 Respiratory Rate 16 16 16 Blood Pressure 148/65 H 155/65 H Blood Pressure [Le ft Arm] 132/67 Pulse Oximetry 93 92 95 Oxygen Delivery Me thod Room Air 05/21/24 00:00 05/21/24 03:00 05/21/24 05:34 Temperature 99.1 F 100 F H 99 F Pulse Rate Pulse Rate [Pulse Oximeter] Pulse Rate [Right Pulse Oximeter] 90 100 Respiratory Rate 20 20 Blood Pressure Blood Pressure [Le ft Arm] 113/61 123/55 L Pulse Oximetry 95 93 Oxygen Delivery Me thod Room Air Room Air 05/21/24 07:00 05/21/24 11:00 Temperature 98.0 F Pulse Rate Pulse Rate [Pulse Oximeter] 93 Pulse Rate [Right Pulse Oximeter] 91 Respiratory Rate 18 18 Blood Pressure Blood Pressure [Le ft Arm] 110/62 107/59 L Pulse Oximetry 89 91 Oxygen Delivery Me thod Room Air Room Air Labs Labs: Short CBC 05/21/24 Range/Units 08:31 WBC 9.27 (4.50-11.00) K/uL Hgb 11.8 L (12.0-16.0) gm/dL Hct 36.1 (33.0-51.0) % Plt Count 163 (140-440) K/uL BMP 05/21/24 08:31 Sodium 129 L Potassium 3.2 L Chloride 101 Carbon Dioxide 23 BUN 17 Creatinine 1.0 Glucose 116 H Calcium 8.3 L Assessment and Plan Assessment and plan (1) Hx of appendectomy: Problem comment: - 05/20/24, Dr. Leon - perforated Status: Acute (2) Hyponatremia: Problem comment: - presumably secondary to increased free water intake during illness, currently on clear liquid diet - add protein supplementation when tolerating po intake, check UA and Urine sodium - will not fluid restrict at this time, consider if any further decrease in sodium Status: Acute (3) Hypokalemia: Problem comment: - check magnesium - replace and follow Status: Acute (4) Essential hypertension: Problem comment: - holding Metoprolol, will restart tomorrow with holding parameters (currently having lower BPs) Status: Acute (5) Hyperlipidemia: Problem comment: - will restart statin when tolerating po Status: Acute Plan - per above - patient and updated, questions answered
[2024-05-21 13:21] LABS: Magnesium* 2.1 mg/dL (1.5-2.6)
[2024-05-21 15:42] LABS: Appearance Urine Cloudy (Clear); Bilirubin Urine 1+ (Negative); Blood Urine Trace-intact (Negative); Color Urine Amber (Yellow); Glucose Urine Negative (Negative); Ketones Urine Trace (Negative); Leukocyte Esterase Urine Negative (Negative); Nitrite Urine Negative (Negative); Protein Urine 2+ (Negative); Specific Gravity Urine 1.025 (1.000-1.030); pH Urine 5.5 (5.0-8.5)
[2024-05-21 16:30] LABS: RBC Urine 0-2 (0-2)
[2024-05-21 16:31] LABS: Coarse Granular Casts Urine Few; Squamous Epithelial Cell Urine Few (None-Few); White Blood Cell Casts Urine Few
[2024-05-21 16:32] LABS: Amorphous Sediment Urine Few; Bacteria Urine Few
[2024-05-21 16:36] LABS: Sodium Urine Random* 8
[2024-05-21] MEDS: POTASSIUM CHLORIDE 10 MEQ CAPSULE ER 40 MEQ PO (17:12)
--- NOTE | 2024-05-21 19:24 | PC.NURSE ---
End of shift: The patient is pleasant and interactive during cares. VSS on RA, the patient reports moderate pain intermittently with coughing and any type of movement. Prn Oxy given, the patient states that this helps. N/S infusing @ 75, New IV was placed in L hand. L lower lap site this morning was noted to have broke open, a moderate amount of serosanguineous fluid was noted upon assessment, MD notified... new steri strips were placed, although soaked through. Dr Leon reinforced with gauze and a Tegaderm, this seems to be working well. SBA to BR, UA was collected today. Potassium pills were given with her dinner as well. Clear liquid diet continues, no N/V. Call light within reach. The patients family visited this evening. Janie ENGLE BSN
[2024-05-21] MEDS: ENOXAPARIN 30 MG/0.3ML INJ SUBCUT (23:22)
[2024-05-21] MEDS: HYDROmorphone 0.5 mg/0.5 ml inj IVP (23:22)
[2024-05-22] VITALS (7 sets, daily range): BP systolic 128–153; BP diastolic 70–81; PULSE 70–106; RESP 16–18; TEMP 36.7–37.4; O2SAT 92–95
[2024-05-22] MEDS: OXYCODONE 5 MG TABLET PO (02:46)
[2024-05-22] MEDS: ACETAMINOPHEN 325 MG TABLET PO ×3 (02:46→17:39)
[2024-05-22] MEDS: MAG HYDROX/ALUMINUM HYD/SIMETH 30 ML ORAL.SUSP 15 ML PO ×2 (04:27→08:27)
--- NOTE | 2024-05-22 06:52 | PC.NURSE ---
End of shift report [id number]: Alert and oriented x 4. Pain to abdomen well managed with current regimen. Bowel sounds active x 4 quadrants, patient reports that she is not passing flatus as of now. Increased burping and indigestion, PRN maalox administered. Patient ambulated in hallway x 2 this shift, tolerated well. At 0245 policy writer sales assisted patient to bathroom and IV to left hand having some bleeding under dressing and leaking of IV fluid. Head Machine Feeder redressed IV and attempted to flush IV and found to be inflitrated. IV discontinued. Unable to place new IV, Rachna ENGLE attempted to place under ultrasound but not successful. forest fire specialist supervisor discussed with anesthesiologist and they will attempt to place after current patient they are assisting is complete. Lap sites clean dry and intact. Tolerating clear liquid diet. Urine continues to be dark brianna in color, denies any pain or burning with urination. Encouraging fluids.
[2024-05-22 07:10] LABS: Eosinophils Percent Auto 0.9 % (0.0-7.0); Hematocrit 40.8 % (33.0-51.0); Hemoglobin* 13.9 gm/dL (12.0-16.0); Immature Granulocytes Pct Auto 0.4 %; Lymphocytes Percent Auto 4.5 % (20-44); Mean Corpuscular HGB Conc 34 gm/dL (32-36); Mean Corpuscular Hemoglobin 31 pg (26-34); Mean Corpuscular Volume 90 fL (80-100); Monocytes Percent Auto 3.7 % (0.0-11.0); Neutrophils Percent Auto 90.5 % (42.0-72.0); Platelet Count* 219 K/uL (140-440); RDW Coefficient of Variation % 13.4 % (11.5-15.5); Red Blood Count 4.54 m/uL (4.00-5.20); White Blood Count* 11.59 K/uL (4.50-11.00)
[2024-05-22 07:14] LABS: Slide Review Reflex No
[2024-05-22 07:23] LABS: Chloride* 102 mmol/L (96-114); Potassium* 3.6 mmol/L (3.6-5.1); Sodium* 130 mmol/L (135-149)
[2024-05-22 07:26] LABS: Anion Gap 8 mEq/L (7-15); Blood Urea Nitrogen* 15 mg/dL (7-30); Carbon Dioxide* 20 mmol/L (20-32); Creatinine* 0.8 mg/dL (0.5-1.5); Est. Creatinine Clearance* 41.49; Estimated Glomerular Filt Rate 72 ml/min; Glucose* 161 mg/dL (60-115)
[2024-05-22 07:27] LABS: Magnesium* 2.4 mg/dL (1.5-2.6)
[2024-05-22] MEDS: PIPERACILLIN/TAZOBACTAM 3.375 GM in 0.9 % SODIUM CHLORIDE Mini-bag 100 ML IVPB ×3 (08:28→17:32)
[2024-05-22] MEDS: SODIUM CHLORIDE 0.9 % (FLUSH) 10 ML SYRINGE 5 ML IVF (08:28)
--- NOTE | 2024-05-22 10:59 | PM.GSPN ---
Subjective Subjective Date Seen: 05/22/24 Interval history: Patient is doing okay this morning. Still has a little bit of pain on the right side, stable compared to yesterday. Feels more bloated today. Has not yet passed gas, is burping quite a bit. Was given some simethicone, which helped with some of the discomfort she is feeling. No bowel movement yet. Has been tolerating some sips of clears. Exam Narrative: Exam Narrative: General: Alert and oriented, no acute distress Abdomen: Distended abdomen, some a right lower quadrant tenderness to palpation. Incisions clean/dry/intact. Middle incision with no evidence of drainage. Const: Vital Signs, click to edit/add: Vital Signs - 24 hr 05/21/24 11:00 05/21/24 15:00 05/21/24 15:00 Temperature 98.5 F Pulse Rate 84 Pulse Rate [Pulse Oximeter] Pulse Rate [Right Pulse Oximeter] 91 92 Respiratory Rate 18 18 Blood Pressure [Le ft Arm] 107/59 L 122/65 Pulse Oximetry 91 90 Oxygen Delivery Me thod Room Air Room Air 05/21/24 19:00 05/21/24 23:00 05/21/24 23:00 Temperature 97.0 F L Pulse Rate 95 Pulse Rate [Pulse Oximeter] Pulse Rate [Right Pulse Oximeter] 80 70 Respiratory Rate 18 16 Blood Pressure [Le ft Arm] 135/50 L Pulse Oximetry 91 Oxygen Delivery Me thod Room Air 05/21/24 23:00 05/22/24 03:00 05/22/24 07:00 Temperature 98.6 F 98.9 F Pulse Rate Pulse Rate [Pulse Oximeter] 99 Pulse Rate [Right Pulse Oximeter] 70 70 Respiratory Rate 16 18 16 Blood Pressure [Le ft Arm] 143/76 H 142/70 H Pulse Oximetry 90 92 Oxygen Delivery Me thod Room Air Room Air 05/22/24 07:00 Temperature 98.0 F Pulse Rate Pulse Rate [Pulse Oximeter] Pulse Rate [Right Pulse Oximeter] 99 Respiratory Rate 16 Blood Pressure [Le ft Arm] 149/79 H Pulse Oximetry 95 Oxygen Delivery Me thod Room Air Labs/Imaging Labs Labs: WBC 11, sodium 130 Progress Note:A&P Assessment and plan (1) Acute appendicitis: Status: Acute Assessment and Plan: Patient is postop day 2 laparoscopic appendectomy for perforated appendicitis. Afebrile and vital signs stable. Patient likely has a postoperative ileus with evidence of increased distension today and not passing gas per rectum. This is not unexpected given the amount of intra-abdominal contamination. Okay for sips of clears, but would not advance diet. -encourage ambulation -p.o. and IV pain meds as needed -continue IV Zosyn -SCDs and Lovenox for DVT prophylaxis (2) Hyponatremia: Status: Acute Assessment and Plan: Patient admitted with sodium 129. Sodium this morning 130. Hospitalist is following. No recommendations for fluid restriction at this time. Expect improvement once able to advance diet and protein intake. Not currently able to tolerate more p.o. intake secondary to postoperative ileus.
--- NOTE | 2024-05-22 14:01 | PC.SOCIAL ---
Discharge planning: At pt request, met with her and family regarding discharge planning and resources for support at home. 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 They live in a one story town home they moves to about ten years ago and are doing well there. Pt shared that she is interested in finding out if they are eligible for any benefits through the critical access hospital for providing area director of home health sales care in their home or for financial assistance of the expense of moving into an assisted living facility in the future if needed. Provided pt and family with packet including resources for the [facility], venue attendant care, home delivered meals, assisted living facilities, enhanced assisted living facilities and nursing homes in the area. Discussed these resources and answered questions. Family and patient are seeking resources for the future as there are no identified immediate needs. With pt's permission, made an online referral to the [facility] ([id number]) requesting a Gas Station Cashier Care Assessment be completed with pt to assess if they are eligible for supportive services from the critical access hospital to assist in keeping them safely in their home. At pt request, asked the [facility] to wait until next week to reach out as pt wants to complete this when she is feeling better and at home. Family and pt were appreciative of information provided and are aware of how to reach licensed social worker if they have additional questions or need other resources.
--- NOTE | 2024-05-22 14:22 | PM.IMPN1 ---
Progress Note: A&P Assessment and plan (1) Acute appendicitis: Status: Acute (2) Hyponatremia: Problem details: - presumably secondary to increased free water intake during illness, currently on clear liquid diet - Na remains stable, patient asymptomatic - add protein supplementation when tolerating po intake - no concerning findings on UA Status: Acute Plan - per above Subjective Date Seen: 05/22/24 Interval history: Shilrene is POD 2 from a laparoscopic appendectomy for a perforated appendicitis. Hospitalist team following given postoperative hyponatremia, hypokalemia, comorbidities. Admission Na of 129 on 05/19, up to 134 on 05/20, 129 on 05/21, 130 today. Remains asymptomatic. Potassium 3.6 and Magnesium normal. Remains on clear liquid diet. VSS, afebrile. Exam Narrative: Exam Narrative: Appears nontoxic and stable, ambulating in hallway. Const: Vital Signs, click to edit/add: Vital Signs - 24 hr 05/21/24 15:00 05/21/24 15:00 05/21/24 19:00 Temperature 98.5 F 97.0 F L Pulse Rate 84 Pulse Rate [Pulse Oximeter] Pulse Rate [Right Pulse Oximeter] 92 80 Respiratory Rate 18 18 Blood Pressure [Le ft Arm] 122/65 135/50 L Pulse Oximetry 90 91 Oxygen Delivery Me thod Room Air Room Air 05/21/24 23:00 05/21/24 23:00 05/21/24 23:00 Temperature 98.6 F Pulse Rate 95 Pulse Rate [Pulse Oximeter] Pulse Rate [Right Pulse Oximeter] 70 70 Respiratory Rate 16 16 Blood Pressure [Le ft Arm] 143/76 H Pulse Oximetry 90 Oxygen Delivery Me thod Room Air 05/22/24 03:00 05/22/24 07:00 05/22/24 07:00 Temperature 98.9 F 98.0 F Pulse Rate Pulse Rate [Pulse Oximeter] 99 Pulse Rate [Right Pulse Oximeter] 70 99 Respiratory Rate 18 16 16 Blood Pressure [Le ft Arm] 142/70 H 149/79 H Pulse Oximetry 92 95 Oxygen Delivery Me thod Room Air Room Air 05/22/24 07:00 05/22/24 11:00 Temperature 99.3 F Pulse Rate 92 Pulse Rate [Pulse Oximeter] Pulse Rate [Right Pulse Oximeter] 100 Respiratory Rate 18 Blood Pressure [Le ft Arm] 137/81 Pulse Oximetry 93 Oxygen Delivery Me thod Room Air Labs Labs: Laboratory Results - last 24 hr 05/21/24 05/21/24 05/22/24 12:34 15:27 06:17 WBC 11.59 H RBC 4.54 Hgb 13.9 Hct 40.8 MCV 90 MCH 31 MCHC 34 RDW Coeff of Isa 13.4 Plt Count 219 Neut % (Auto) 90.5 H Lymph % (Auto) 4.5 L [place] % (Auto) 3.7 Eos % (Auto) 0.9 Baso % (Auto) 0.0 Neut # (Auto) 10.50 H Lymph # (Auto) 0.50 L [place] # (Auto) 0.40 Eos # (Auto) 0.10 Baso # (Auto) 0.00 Abs Immat Gran (auto) 0.00 Imm/Tot Granulo (auto) 0.4 Sodium 130 L Potassium 3.6 Chloride 102 Carbon Dioxide 20 Anion Gap 8 BUN 15 Creatinine 0.8 Estimated Creat Clear 41.49 Estimated GFR 72 Glucose 161 H Calcium 9.0 Magnesium 2.4 Urine Color [place] A Urine Appearance Cloudy A Urine pH 5.5 Ur Specific [place] 1.025 Urine Protein 2+ A Urine Glucose (UA) Negative Urine Ketones Trace A Urine Blood Trace-intact A Urine Nitrite Negative Urine Bilirubin 1+ A Urine Urobilinogen 1.0 Ur Leukocyte Esterase Negative Urine RBC 0-2 Urine WBC 2-5 Ur Squamous Epith Cells Few Amorphous Sediment Few A Urine Bacteria Few A Coarse Granular Casts Few A WBC Casts Few A Ur Random Sodium 8
--- NOTE | 2024-05-22 23:45 | PC.NURSE ---
End of shift: Alert and oriented x 4, pleasant, and cooperative. Pts tele stripped was obscured showing Vtach. EKG complete reading sinus tachycardia with intraventricular block, VS complete, pt remained asymptomatic as she was brushing her teeth. MD notified and aware. Continuing to monitor. 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 Pt noted relief. Bowel sounds active x 4 quadrants, patient reports that she is passing flatus but still feels bloated. Patient ambulated in hallway independently, tolerated well. Lap site clean dry and intact. Tolerating clear liquid diet. Encouraging fluids. Pt resting in chair watching television with call light in reach.
[2024-05-23] VITALS (28 sets, daily range): BP systolic 102–149; BP diastolic 55–98; PULSE 77–130; RESP 16–18; TEMP 35.9–37.6; O2SAT 92–96
[2024-05-23] MEDS: PIPERACILLIN/TAZOBACTAM 3.375 GM in 0.9 % SODIUM CHLORIDE Mini-bag 100 ML IVPB ×5 (00:47→23:40)
[2024-05-23] MEDS: SODIUM CHLORIDE 0.9 % (FLUSH) 10 ML SYRINGE 5 ML IVF ×4 (00:48→23:45)
[2024-05-23] MEDS: ENOXAPARIN 30 MG/0.3ML INJ SUBCUT (00:48)
[2024-05-23] MEDS: ACETAMINOPHEN 325 MG TABLET PO (01:03)
[2024-05-23] MEDS: METOPROLOL TARTRATE 1 MG/ML inj 2.5 MG IVP ×3 (02:35→05:06)
--- NOTE | 2024-05-23 02:48 | PC.NURSE ---
EVENT NOTE: Pt tele strip started reading A. Fib so an EKG wad obtained @ 0220 reading A. Fib RVR with a rate in the 130s-140s. Dr. Fan was contacted and gave verbal order for 2.5mg IVP Lopressor x1 dose and to repeat the dose in 30 minutes if HR does not show < 100. If second dose is given and still no decrease after another 30 minutes, to call MD and he will evaluate. Dr. Fan also resumed patient's home medication of 25mg daily metoprolol to be restarted in the AM. Pt has been asymptomatic during this time.
--- NOTE | 2024-05-23 04:23 | CRLHL7_ITS ---
For Patients: As a result of the Cures Act, medical imaging exams and procedure reports are released immediately into your electronic medical record. You may view this report before your referring provider. If you have questions, please contact your health care provider. Indication: AFib, RVR. Technique: One view(s) of the chest. Comparison: CT 09/05/2018. Findings: Enlarged cardiomediastinal silhouette. Mildly hypoinflated lungs with bronchovascular crowding. Mild airspace opacities in the medial right lung base. Previously identified pulmonary nodule in the left lower lobe on prior CT is not well visualized radiographically. No pleural effusion. No pneumothorax. No acute osseous abnormality identified. Impression: 1. Mildly hypoinflated lungs. Mild airspace opacities in the medial right lung base may represent atelectasis versus pneumonia. 2. Previously seen left lower lobe pulmonary nodule on prior CT from 2019 is not appreciated radiographically. Dictated by Dora Cohen MD @ 05/23/2024 6:21:07 AM (Electronically Signed)
--- NOTE | 2024-05-23 06:29 | PC.NURSE ---
EVENT NOTE: Patient received x2 doses 2.5mg IVP Lopressor with no resolve from A. Fib RVR. Dr. Fan notified. He put in STAT CXR, scheduled IVP metoprolol q6h (hold if HR < 100) and ordered a PRN NG tube placement order. Per Dr. Fan, NG should be indicated if patient has increased nausea or if abdominal distention is worsening. Dr. Fan ordered for staff to CALL HIM PRIOR TO PLACING NG and he will evaluate.
--- NOTE | 2024-05-23 06:56 | PC.NURSE ---
End of shift [id number] - RN took over pt care at approximately 2300. Pt alert, oriented, cooperative. Reported pain in abdomen related to surgical site as 8/10 that increased with movement. Pt reported bloated feeling, abdomen noted to be large, round, distended. Non painful on palpation. Pt reports flatus and had 3 small and loose BMs during shift. Telemetry indicated elevated HR and A-fib rhythm. EKG recorded at bedside and [facility] MD notified. Medication given per MD order with no improvement. MD updated, medications given per MD orders. Pt condition remains unchanged at shift change, MD aware. Pt asymptomatic of a-fib rhythm. Tolerating RA and clear liquid diet. Up with standby assistance in room. Appears to be resting comfortably at end of shift with call light within reach.
[2024-05-23 07:28] LABS: Chloride* 103 mmol/L (96-114)
[2024-05-23 07:29] LABS: Potassium* 3.2 mmol/L (3.6-5.1); Sodium* 130 mmol/L (135-149)
[2024-05-23 07:32] LABS: Anion Gap 5 mEq/L (7-15); Blood Urea Nitrogen* 12 mg/dL (7-30); Carbon Dioxide* 22 mmol/L (20-32); Creatinine* 0.8 mg/dL (0.5-1.5); Est. Creatinine Clearance* 41.49; Estimated Glomerular Filt Rate 72 ml/min; Glucose* 150 mg/dL (60-115)
[2024-05-23 08:38] LABS: Magnesium* 2.5 mg/dL (1.5-2.6)
[2024-05-23 08:41] LABS: Basophils Absolute Auto 0.01 K/uL (0.00-0.30); Basophils Percent Auto 0.1 % (0.0-3.0); Eosinophils Absolute Auto 0.26 K/uL (0.00-0.50); Eosinophils Percent Auto 2.6 % (0.0-7.0); Hematocrit 39.5 % (33.0-51.0); Hemoglobin* 13.4 gm/dL (12.0-16.0); Immature Granulocytes Abs Auto 0.08 K/uL (0.00-0.30); Immature Granulocytes Pct Auto 0.8 %; Lymphocytes Percent Auto 9.4 % (20-44); Mean Corpuscular HGB Conc 34 gm/dL (32-36); Mean Corpuscular Hemoglobin 31 pg (26-34); Mean Corpuscular Volume 90 fL (80-100); Monocytes Percent Auto 5.7 % (0.0-11.0); Neutrophils Percent Auto 81.4 % (42.0-72.0); Platelet Count* 284 K/uL (140-440); RDW Coefficient of Variation % 13.5 % (11.5-15.5); White Blood Count* 10.16 K/uL (4.50-11.00)
[2024-05-23 08:42] LABS: Slide Review Reflex No
[2024-05-23 08:51] LABS: C Reactive Protein* 21.1 mg/dL (0.5-1.0)
[2024-05-23] MEDS: dilTIAZem 30 MG TABLET PO (09:14)
[2024-05-23 11:47] LABS: Troponin I* 0.05 ng/mL (0.01-0.04)
--- NOTE | 2024-05-23 12:02 | PM.IMPN1 ---
Progress Note: A&P Assessment and plan (1) Atrial fibrillation with RVR: Problem details: - new diagnosis early 05/23/24 - last TTE in outpatient chart revealed an EF of 60-65%, updated TTE ordered - rate did not respond to IV Metoprolol x2, no response to oral Diltiazem - increase level of care to CCU, initiate Diltiazem gtt 05/23/24 - Eliquis for anticoagulation Status: Acute (2) Hyponatremia: Problem details: - presumably secondary to increased free water intake during illness, currently on clear liquid diet - Na remains stable, patient asymptomatic - add protein supplementation when tolerating po intake - no concerning findings on UA Status: Acute (3) Hypokalemia: Problem details: - replace and follow, magnesium is normal Status: Acute (4) Hx of appendectomy: Problem details: - 05/20/24, Dr. Leon - perforated Status: Acute Plan - CCU status, plan per above with new Diltiazem gtt, anticoagulation - and son updated at bedside, questions answered Subjective Date Seen: 05/23/24 Interval history: Shirlene is POD 3 from a laparoscopic appendectomy with Dr. Leon for a perforated appendicitis. Hospitalist team following given postoperative hyponatremia, hypokalemia, comorbidities. Overnight, patient went into new atrial fibrillation with RVR. She had no symptoms with this rhythm. No chest pain. Troponin 0.05 this morning, stable at 0.05 on repeat. Treated with IV Metoprolol x2 with no change in rate, also given a dose of oral Diltiazem this morning with no change in rate/rhythm. Today, Sodium remains stable on 130. Potassium 3.2, Magnesium normal. Having nausea, one episode of vomiting. Remains on clear liquid diet. Exam Narrative: Exam Narrative: GEN: Alert and nontoxic, sitting comfortably in bed and answering questions appropriately HEENT: EOMIs bilaterally, no scleral icterus CV: Irregularly irregular with rate 120s, no concerning murmurs R: LCTA bilaterally without concerning wheezing Ab: Mild distention, hypoactive bowel sounds, mild discomfort with palpation, no rebound or guarding Ext: wwp, no concerning edema Skin: No concerning skin lesions or rashes on exposed skin Neuro: Nonfocal Psych: Appropriate Const: Vital Signs, click to edit/add: Vital Signs - 24 hr 05/22/24 15:00 05/22/24 15:00 05/22/24 15:00 Temperature 98.6 F Pulse Rate 99 Pulse Rate [Right Pulse Oximeter] 100 100 Respiratory Rate 16 16 Blood Pressure [Le ft Arm] 128/76 Pulse Oximetry 93 Oxygen Delivery Me thod Room Air 05/22/24 19:00 05/22/24 20:28 05/22/24 23:54 Temperature 98.9 F 98.6 F Pulse Rate 91 Pulse Rate [Right Pulse Oximeter] 106 H 104 H Respiratory Rate 16 16 Blood Pressure [Le ft Arm] 153/77 H 153/80 H Pulse Oximetry 94 95 Oxygen Delivery Me thod Room Air Room Air 05/23/24 01:48 05/23/24 03:54 05/23/24 07:00 Temperature 98.6 F 98.7 F Pulse Rate Pulse Rate [Right Pulse Oximeter] 102 H 120 H 129 H Respiratory Rate 18 16 18 Blood Pressure [Le ft Arm] 145/93 H 127/78 Pulse Oximetry 94 94 Oxygen Delivery [place] thod Room Air Room Air 05/23/24 07:00 05/23/24 07:00 05/23/24 11:00 Temperature 97.6 F 99.6 F Pulse Rate 99 Pulse Rate [Right Pulse Oximeter] 129 H 115 H Respiratory Rate 18 18 Blood Pressure [Le ft Arm] 129/80 108/85 Pulse Oximetry 96 94 Oxygen Delivery Me thod Room Air Room Air Labs Labs: Laboratory Results - last 24 hr 05/23/24 05/23/24 05/23/24 06:15 08:24 11:22 WBC 10.16 RBC 4.40 Hgb 13.4 Hct 39.5 MCV 90 MCH 31 MCHC 34 RDW Coeff of Isa 13.5 Plt Count 284 Neut % (Auto) 81.4 H Lymph % (Auto) 9.4 L [place] % (Auto) 5.7 Eos % (Auto) 2.6 Baso % (Auto) 0.1 Neut # (Auto) 8.30 H Lymph # (Auto) 1.00 [place] # (Auto) 0.60 Eos # (Auto) 0.26 Baso # (Auto) 0.01 Abs Immat Gran (auto) 0.08 Imm/Tot Granulo (auto) 0.8 Sodium 130 L Potassium 3.2 L Chloride 103 Carbon Dioxide 22 Anion Gap 5 L BUN 12 Creatinine 0.8 Estimated Creat Clear 41.49 Estimated GFR 72 Glucose 150 H Calcium 9.0 Magnesium 2.5 C-Reactive Protein 21.1 H TSH 1.950 Lab Acknowledgement Test Added Test Added
[2024-05-23 12:30] LABS: Troponin I* 0.05 ng/mL (0.01-0.04)
[2024-05-23] MEDS: POTASSIUM CHLORIDE 10 MEQ/100 ML PIGGYBACK 100 MEQ IVPB (13:00)
--- NOTE | 2024-05-23 13:16 | P.GSPN_ITS ---
Subjective Subjective Date Seen: 05/23/24 Interval history: Shirlene is feeling okay as far as recovery from surgery, however she did go into AFib today. She is getting rate control per the hospitalist. She did have some nausea this morning. She had some yesterday as well. She did have diarrhea yesterday and overnight. She states that she is not really having any significant abdominal pain other than occasional discomfort in the right lower abdomen. No further drainage from her incision. She feels that her abdomen is distended but that it is improving. Exam Narrative: Exam Narrative: General: No acute distress CV: Irregular rate and rhythm Respiratory: Breathing nonlabored on room Abdomen: Distended. Soft and nontender. Incisions without significant e rythema though her lower abdomen on the left appears subtly reddened. This is not particularly around her left lower quadrant incision. Bowel sounds are present and slightly hypoactive. Const: Vital Signs, click to edit/add: Vital Signs - 24 hr 05/22/24 15:00 05/22/24 15:00 05/22/24 15:00 Temperature 98.6 F Pulse Rate 99 Pulse Rate [Right Pulse Oximeter] 100 100 Respiratory Rate 16 16 Blood Pressure [Le ft Arm] 128/76 Pulse Oximetry 93 Oxygen Delivery Me thod Room Air 05/22/24 19:00 05/22/24 20:28 05/22/24 23:54 Temperature 98.9 F 98.6 F Pulse Rate 91 Pulse Rate [Right Pulse Oximeter] 106 H 104 H Respiratory Rate 16 16 Blood Pressure [Le ft Arm] 153/77 H 153/80 H Pulse Oximetry 94 95 Oxygen Delivery Me thod Room Air Room Air 05/23/24 01:48 05/23/24 03:54 05/23/24 07:00 Temperature 98.6 F 98.7 F Pulse Rate Pulse Rate [Right Pulse Oximeter] 102 H 120 H 129 H Respiratory Rate 18 16 18 Blood Pressure [Le ft Arm] 145/93 H 127/78 Pulse Oximetry 94 94 Oxygen Delivery Me thod Room Air Room Air 05/23/24 07:00 05/23/24 07:00 05/23/24 11:00 Temperature 97.6 F 99.6 F Pulse Rate 99 Pulse Rate [Right Pulse Oximeter] 129 H 115 H Respiratory Rate 18 18 Blood Pressure [Le ft Arm] 129/80 108/85 Pulse Oximetry 96 94 Oxygen Delivery Me thod Room Air Room Air Labs/Imaging Labs Labs: White blood cell count is down to 10 from 11.5 CRP is 21. No comparison. Potassium is 3.2 Sodium is 130. Progress Note:A&P Assessment and plan (1) Atrial fibrillation with RVR: Status: Acute (2) Hypokalemia: Status: Acute (3) Hx of appendectomy: Status: Acute (4) Hyponatremia: Status: Acute Plan The patient is an 83-year-old female who is postop day 3 from laparoscopic appendectomy for perforated appendicitis for focal feculent peritonitis. -return of bowel function present, however still with some nausea. Continue clear liquids today. If she does not have nausea the rest the day then she could advance to full liquids this evening. -if she has ongoing diarrhea check for C diff. -continue IV antibiotics well inpatient -hospitalist management of electrolytes and atrial fibrillation. Okay for anticoagulation from surgery standpoint. -updated the patient, her son and her today. She is certainly at risk for intra-abdominal abscess which could be triggering atrial fibrillation. At this point will continue antibiotics and conservative management. May need additional imaging if she does not progress over the coming days, however overall today despite the AFib she appears nontoxic and improved from yesterday per the patient.
[2024-05-23] MEDS: dilTIAZem HCL 125 MG in 0.9 % SODIUM CHLORIDE 100 ml 100 ML IVPB (13:41)
[2024-05-23] MEDS: APIXABAN 5 MG TABLET PO ×2 (13:55→21:29)
[2024-05-23 16:55] LABS: Chloride* 104 mmol/L (96-114)
[2024-05-23 16:56] LABS: Potassium* 3.2 mmol/L (3.6-5.1); Sodium* 131 mmol/L (135-149)
[2024-05-23 16:58] LABS: Creatinine* 0.8 mg/dL (0.5-1.5); Est. Creatinine Clearance* 41.49; Estimated Glomerular Filt Rate 72 ml/min
[2024-05-23 16:59] LABS: Anion Gap 6 mEq/L (7-15); Blood Urea Nitrogen* 14 mg/dL (7-30); Carbon Dioxide* 21 mmol/L (20-32); Glucose* 150 mg/dL (60-115)
[2024-05-23 17:11] LABS: Troponin I* 0.05 ng/mL (0.01-0.04)
--- NOTE | 2024-05-23 18:45 | PC.NURSE ---
ASSUMED CARE FOR PATIENT AT 1315. PATIENT CONTINUES WITH AFIB WITH RVR DESPITE PO CARDIZEM WITH HR 120-130'S. SECOND IV SITE STARTED AND CARDIZEM DRIP STARTED AT 5ML/HR AT 1340. AT 1430 PATIENT NOTED TO HAVE CONVERTED TO NSR WITH PVC'S. EKG COMPLETED AND MD NOTIFIED. CARDIZEM DRIP STOPPED BUT AT 1450 PATIENT RETURNED TO AFIB WITH RVR. CARDIZEM DRIP RESTARTED AT 5ML/HR. PATIENT AGAIN CONVERTED TO NSR WITH BBB, 1ST DEGREE AV BLOCK AND OCCASIONAL PVC'S. PATIENT INTERMITTENTLY NOTED TO BE IN BIGEMINY AND TRIGEMINY. MD UPDATED WITH ORDER TO MAINTAIN PATIENT ON CARDIZEM DRIP AND MONITOR BP AND HR. PATIENT'S HR REMAINED REGULAR WITH HR 80'S AND MD ORDER TO DECREASE CARDIZEM DRIP TO 2.5ML/HR AT 1715. PATIENT HAS CONTINUED TO MAINTAIN NORMAL SINUS RHYTHM WITH HEART RATE IN 80'S AND MD ORDER TO DC DRIP AT 1840. PATIENT DID HAVE 1 EPISODE OF LIQUID STOOL AFTER EATING FULL LIQUID LUNCH THAT WAS CONTINENT AND INCONTINENT. MIXED WITH URINE SO UNABLE TO SEND CDIFF SAMPLE. NO FURTHER STOOLS AND PAITIENT HAS DENIED NAUSEA/VOMITING. UP WITH A1 TO BSC AND RECLINER.
[2024-05-23 20:29] LABS: C.Difficile Negative (Negative); CDIFFEPI 027 PRESUMPTIVE NEGATIVE (Negative)
[2024-05-23] MEDS: 0.9 % SODIUM CHLORIDE 250 ml IV (23:40)
[2024-05-24] VITALS (16 sets, daily range): BP systolic 117–149; BP diastolic 56–79; PULSE 77–95; RESP 16–20; TEMP 36.6–37.6; O2SAT 91–94
[2024-05-24] MEDS: PIPERACILLIN/TAZOBACTAM 3.375 GM in 0.9 % SODIUM CHLORIDE Mini-bag 100 ML IVPB ×4 (05:31→23:24)
--- NOTE | 2024-05-24 05:51 | PC.NURSE ---
Addendum entered by Nuzhat Harding RN 05/24/24 07:24: Heart rate has been WNL throughout the shift, primarily in the 80s. MD Ruvalcaba aware that pt's po Diltiazem on hold and pt is not currently taking home dose of Metoprolol. Original Note: End of shift note [id number]: Pt alert & oriented x 4 and able to make needs known. She transfers to [facility] [place] with SBA though staff have also been encouraging ambulation. Pt has been denying pain when asked with no CP this shift. Pt on tele with NSR with BBB and first degree AV block noted. Sinus arrhythmia with BBB and first degree AV block noted with 0300 tele reading. Pt has been afebrile and on RA throughout the shift. No s/sx of infection to abdomen lap sites. Order for clear liquid diet in place. Pt did have one small emesis last evening with small amount of yellow bile noted with no further episodes of emesis noted this shift. Nausea effectively treated with aromatherapy patch. Pt noted to have episodes of liquid stool though remains on IV ABX. Intake and output completed accordingly. Bowel sounds of Upper abdomen quadrants noted to be hypoactive at start of shift though more active throughout the shift. Stool sample sent to lab for C. diff testing with negative results. Pt noted to be passing gas. Pt has been continent of bladder and both continent and incontinent of bowel. IV ABX administered per order. Pt slept most of shift in bed though requested to get into recliner approximately two hours ago after using BSC. Pt has slept well overnight in between VS Q2H and toileting. Call light within reach.
[2024-05-24] MEDS: SODIUM CHLORIDE 0.9 % (FLUSH) 10 ML SYRINGE 5 ML IVF ×4 (06:17→20:54)
[2024-05-24 07:47] LABS: Albumin* 2.8 g/dL (3.3-5.0); Chloride* 104 mmol/L (96-114); Sodium* 132 mmol/L (135-149)
[2024-05-24 07:49] LABS: Creatinine* 0.8 mg/dL (0.5-1.5); Est. Creatinine Clearance* 41.49; Estimated Glomerular Filt Rate 72 ml/min
[2024-05-24 07:50] LABS: Alkaline Phosphatase* 119 U/L (40-150); Anion Gap 7 mEq/L (7-15); Aspartate Amino Transferase* 55 U/L (12-35); Blood Urea Nitrogen* 14 mg/dL (7-30); Carbon Dioxide* 21 mmol/L (20-32); Glucose* 134 mg/dL (60-115); Total Protein* 5.5 g/dL (6.0-8.3)
[2024-05-24 07:51] LABS: Alanine Aminotransferase* 61 U/L (4-35); Calcium* 8.8 mg/dL (8.4-10.6); Magnesium* 2.4 mg/dL (1.5-2.6)
[2024-05-24 08:03] LABS: C Reactive Protein* 12.6 mg/dL (0.5-1.0)
[2024-05-24 08:10] LABS: Basophils Absolute Auto 0.02 K/uL (0.00-0.30); Basophils Percent Auto 0.2 % (0.0-3.0); Eosinophils Absolute Auto 0.33 K/uL (0.00-0.50); Eosinophils Percent Auto 3.3 % (0.0-7.0); Hematocrit 36.4 % (33.0-51.0); Hemoglobin* 12.2 gm/dL (12.0-16.0); Immature Granulocytes Abs Auto 0.23 K/uL (0.00-0.30); Immature Granulocytes Pct Auto 2.3 %; Lymphocytes Percent Auto 14.2 % (20-44); Mean Corpuscular HGB Conc 34 gm/dL (32-36); Mean Corpuscular Hemoglobin 30 pg (26-34); Mean Corpuscular Volume 90 fL (80-100); Monocytes Percent Auto 5.6 % (0.0-11.0); Neutrophils Percent Auto 74.4 % (42.0-72.0); Platelet Count* 266 K/uL (140-440); RDW Coefficient of Variation % 13.7 % (11.5-15.5); Red Blood Count 4.05 m/uL (4.00-5.20); White Blood Count* 9.93 K/uL (4.50-11.00)
[2024-05-24 08:14] LABS: Slide Review Reflex No
[2024-05-24] MEDS: METOPROLOL SUCCINATE (XL) 25 MG TAB PO (09:33)
[2024-05-24] MEDS: APIXABAN 5 MG TABLET PO ×2 (09:33→20:54)
--- NOTE | 2024-05-24 10:22 | P.IMPN_ITS ---
Progress Note: A&P Assessment and plan (1) Atrial fibrillation with RVR: Problem details: - new diagnosis early 05/23/24 - last TTE in outpatient chart revealed an EF of 60-65%, updated TTE completed on 05/24/2024 and stable - was placed on a diltiazem drip on 05/23/2024, converted back to sinus rhythm on 05/24/2024 - back to home metoprolol dosing - Eliquis initiated for anticoagulation, can discuss long-term anticoagulation with PCP and/or Cardiology Status: Acute (2) Hypokalemia: Problem details: - replace and follow, magnesium is normal Status: Acute (3) Hx of appendectomy: Problem details: - 05/20/24, Dr. Leon - perforated Status: Acute (4) Hyponatremia: Problem details: - presumably secondary to increased free water intake during illness, currently on clear liquid diet - Na remains stable, improving, patient asymptomatic - add protein supplementation when tolerating po intake - no concerning findings on UA Status: Acute Plan - per above Subjective Date Seen: 05/24/24 Interval history: Shirlene is POD 4 from a laparoscopic appendectomy with Dr. Leon for a perforated appendicitis. Hospitalist team following given postoperative hyponatremia, hypokalemia, new a fib with RVR on 05/23/24. Was placed in CCU and on Diltiazem gtt, converted back to SR around 0300 this morning. TTE performed today without any acute abnormalities (EF 65-70%, mild and mild AR). Sodium improved at 132 K 3.0, receiving replacement. Nausea improving, advancing diet with General Surgery team. Shirlene is feeling better, no concerns for hospitalist team. Exam Narrative: Exam Narrative: GEN: Alert and oriented, sitting comfortably in bed HEENT: EOMIs bilaterally, no scleral icterus CV: RRR, No concerning murmurs R: LCTA bilaterally without concerning wheezing Ab: Soft with mild distention and mild tenderness to palpation, no rebound or guarding Ext: wwp, no concerning edema Skin: No concerning skin lesions or rashes on exposed skin Neuro: Nonfocal Psych: Appropriate Const: Vital Signs, click to edit/add: Vital Signs - 24 hr 05/23/24 11:00 05/23/24 13:45 05/23/24 14:00 Temperature 99.6 F Pulse Rate Pulse Rate [Right Pulse Oximeter] 115 H 130 H 109 H Respiratory Rate 18 18 Blood Pressure [Le ft Arm] 108/85 138/90 H 105/75 Blood Pressure [Ri ght Arm] Pulse Oximetry 94 92 Oxygen Delivery [facility] Room Air Room Air 05/23/24 14:10 05/23/24 14:20 05/23/24 14:30 Temperature Pulse Rate Pulse Rate [Right Pulse Oximeter] 119 H 110 H 94 Respiratory Rate Blood Pressure [Le ft Arm] 125/79 115/98 H 123/67 Blood Pressure [Ri ght Arm] Pulse Oximetry Oxygen Delivery [facility] 05/23/24 14:40 05/23/24 14:50 05/23/24 15:00 Temperature Pulse Rate 87 Pulse Rate [Right Pulse Oximeter] 102 H 100 Respiratory Rate Blood Pressure [Le ft Arm] 117/75 149/77 H Blood Pressure [Ri ght Arm] Pulse Oximetry Oxygen Delivery [facility] 05/23/24 15:00 05/23/24 15:00 05/23/24 15:15 Temperature 97.8 F Pulse Rate Pulse Rate [Right Pulse Oximeter] 87 97 84 Respiratory Rate 18 18 Blood Pressure [Le ft Arm] 129/63 112/57 L Blood Pressure [Ri ght Arm] Pulse Oximetry 93 Oxygen Delivery [facility] Room Air 05/23/24 15:30 05/23/24 15:45 05/23/24 16:00 Temperature Pulse Rate Pulse Rate [Right Pulse Oximeter] 77 89 87 Respiratory Rate Blood Pressure [Le ft Arm] 105/58 L 114/55 L 105/57 L Blood Pressure [Ri ght Arm] Pulse Oximetry Oxygen Delivery [facility] 05/23/24 16:15 05/23/24 17:00 05/23/24 17:30 Temperature Pulse Rate Pulse Rate [Right Pulse Oximeter] 88 81 83 Respiratory Rate Blood Pressure [Le ft Arm] 102/62 117/62 112/56 L Blood Pressure [Ri ght Arm] Pulse Oximetry Oxygen Delivery [facility] 05/23/24 18:00 05/23/24 18:30 05/23/24 19:00 Temperature 98 F Pulse Rate Pulse Rate [Right Pulse Oximeter] 88 85 80 Respiratory Rate 18 Blood Pressure [Le ft Arm] 124/60 124/67 Blood Pressure [Ri ght Arm] Pulse Oximetry 92 Oxygen Delivery [facility] Room Air 05/23/24 19:06 05/23/24 19:53 05/23/24 21:37 Temperature 96.6 F L 97.8 F Pulse Rate 89 Pulse Rate [Right Pulse Oximeter] 80 88 Respiratory Rate 18 18 Blood Pressure [Le ft Arm] 142/62 H Blood Pressure [Ri ght Arm] 128/60 Pulse Oximetry 94 93 Oxygen Delivery Me thod Room Air Room Air 05/23/24 22:27 05/23/24 23:00 05/23/24 23:52 Temperature 97.8 F Pulse Rate 83 Pulse Rate [Right Pulse Oximeter] 90 90 Respiratory Rate 18 18 Blood Pressure [Le ft Arm] Blood Pressure [Ri ght Arm] 134/64 Pulse Oximetry 93 Oxygen Delivery Me thod Room Air 05/24/24 01:43 05/24/24 02:26 05/24/24 03:00 Temperature 98.4 F Pulse Rate 90 Pulse Rate [Right Pulse Oximeter] 89 79 Respiratory Rate 16 16 Blood Pressure [Le ft Arm] Blood Pressure [Ri ght Arm] 128/67 Pulse Oximetry 91 Oxygen Delivery Me thod Room Air 05/24/24 03:48 05/24/24 05:35 05/24/24 08:00 Temperature 98.5 F 97.9 F 99.6 F Pulse Rate Pulse Rate [Right Pulse Oximeter] 79 84 85 Respiratory Rate 20 20 16 Blood Pressure [Le ft Arm] Blood Pressure [Ri ght Arm] 117/56 L 141/71 H 149/66 H Pulse Oximetry 91 92 94 Oxygen Delivery Me thod Room Air Room Air Room Air 05/24/24 09:09 Temperature Pulse Rate Pulse Rate [Right Pulse Oximeter] 84 Respiratory Rate 20 Blood Pressure [Le ft Arm] Blood Pressure [Ri ght Arm] Pulse Oximetry Oxygen Delivery Me thod Labs Labs: Laboratory Results - last 24 hr 05/23/24 05/23/24 05/23/24 06:15 11:22 11:30 WBC RBC Hgb Hct MCV MCH MCHC RDW Coeff of Ias Plt Count Neut % (Auto) Lymph % (Auto) [place] % (Auto) Eos % (Auto) Baso % (Auto) Neut # (Auto) Lymph # (Auto) [place] # (Auto) Eos # (Auto) Baso # (Auto) Abs Immat Gran (auto) Imm/Tot Granulo (auto) Sodium Potassium Chloride Carbon Dioxide Anion Gap BUN Creatinine Estimated Creat Clear Estimated GFR Glucose Calcium Magnesium Total Bilirubin AST ALT Alkaline Phosphatase Troponin I 0.05 H 0.05 H C-Reactive Protein Total Protein Albumin Stl C. diff Tox B Gene Stl C. diff NAP1-BI Lab Acknowledgement Test Added 05/23/24 05/23/24 05/24/24 16:36 Unknown 07:10 WBC 9.93 RBC 4.05 Hgb 12.2 Hct 36.4 MCV 90 MCH 30 MCHC 34 RDW Coeff of Isa 13.7 Plt Count 266 Neut % (Auto) 74.4 H Lymph % (Auto) 14.2 L [place] % (Auto) 5.6 Eos % (Auto) 3.3 Baso % (Auto) 0.2 Neut # (Auto) 7.40 H Lymph # (Auto) 1.40 [place] # (Auto) 0.60 Eos # (Auto) 0.33 Baso # (Auto) 0.02 Abs Immat Gran (auto) 0.23 Imm/Tot Granulo (auto) 2.3 Sodium 131 L 132 L Potassium 3.2 L 3.0 L Chloride 104 104 Carbon Dioxide 21 21 Anion Gap 6 L 7 BUN 14 14 Creatinine 0.8 0.8 Estimated Creat Clear 41.49 41.49 Estimated GFR 72 72 Glucose 150 H 134 H Calcium 9.0 8.8 Magnesium 2.4 Total Bilirubin 2.0 H AST 55 H ALT 61 H Alkaline Phosphatase 119 Troponin I 0.05 H C-Reactive Protein 12.6 H Total Protein 5.5 L Albumin 2.8 L Stl C. diff Tox B Gene Negative Stl C. diff -NAP1-BI PRESUMPTIVE NEGATIVE Lab Acknowledgement
[2024-05-24] MEDS: POTASSIUM CHLORIDE 10 MEQ CAPSULE ER 40 MEQ PO (12:33)
--- NOTE | 2024-05-24 14:49 | PM.GSPN ---
Subjective Subjective Date Seen: 05/24/24 Interval history: Shirlene had some nausea overnight. She continues to have loose bowel movements. She tested negative for C diff. Heart rate is improved on diltiazem drip. She has not had any nausea today. She is hoping that she will be able to go home tomorrow if she continues to improve. Exam Narrative: Exam Narrative: General: No acute distress Respiratory: Breathing nonlabored on room air Abdomen: Mildly distended but soft. Bowel sounds are present. Abdomen is nontender. Faint lower abdominal erythema from yesterday appears to be a bruise as it now appears yellow. Const: Vital Signs, click to edit/add: Vital Signs - 24 hr 05/23/24 14:50 05/23/24 15:00 05/23/24 15:00 Temperature Pulse Rate 87 Pulse Rate [Right Pulse Oximeter] 100 87 Respiratory Rate 18 Blood Pressure [Le ft Arm] 149/77 H Blood Pressure [Ri ght Arm] [facility] Oxim[facility] 15:00 05/23/24 15:15 05/23/24 15:30 Temperature 97.8 F Pulse Rate Pulse Rate [Right Pulse Oximeter] 97 84 77 Respiratory Rate 18 Blood Pressure [Le ft Arm] 129/63 112/57 L 105/58 L Blood Pressure [Ri ght Arm] Pulse Oximetry 93 Oxygen Delivery [facility] Room Air 05/23/24 15:45 05/23/24 16:00 05/23/24 16:15 Temperature Pulse Rate Pulse Rate [Right Pulse Oximeter] 89 87 88 Respiratory Rate Blood Pressure [Le ft Arm] 114/55 L 105/57 L 102/62 Blood Pressure [Ri ght Arm] Pulse Oximetry [facility] 05/23/24 17:00 05/23/24 17:30 05/23/24 18:00 Temperature 98 F Pulse Rate Pulse Rate [Right Pulse Oximeter] 81 83 88 Respiratory Rate Blood Pressure [Le ft Arm] 117/62 112/56 L 124/60 Blood Pressure [Ri ght Arm] Pulse Oximetry 92 Oxygen Delivery [facility] Room Air 05/23/24 18:30 05/23/24 19:00 05/23/24 19:06 Temperature Pulse Rate 89 Pulse Rate [Right Pulse Oximeter] 85 80 Respiratory Rate 18 Blood Pressure [Le ft Arm] 124/67 Blood Pressure [Ri ght Arm] Pulse Oximetry Oxygen Delivery Me thod 05/23/24 19:53 05/23/24 21:37 05/23/24 22:27 Temperature 96.6 F L 97.8 F Pulse Rate 83 Pulse Rate [Right Pulse Oximeter] 80 88 Respiratory Rate 18 18 Blood Pressure [Le ft Arm] 142/62 H Blood Pressure [Ri ght Arm] 128/60 Pulse Oximetry 94 93 Oxygen Delivery Me thod Room Air Room Air 05/23/24 23:00 05/23/24 23:52 05/24/24 01:43 Temperature 97.8 F 98.4 F Pulse Rate Pulse Rate [Right Pulse Oximeter] 90 90 89 Respiratory Rate 18 18 16 Blood Pressure [Le ft Arm] Blood Pressure [Ri ght Arm] 134/64 128/67 Pulse Oximetry 93 [facility] Room Air 05/24/24 02:26 05/24/24 03:00 05/24/24 03:48 Temperature 98.5 F Pulse Rate 90 Pulse Rate [Right Pulse Oximeter] 79 79 Respiratory Rate 16 20 Blood Pressure [Le ft Arm] Blood Pressure [Ri ght Arm] 117/56 L Pulse Oximetry 91 Oxygen Delivery [facility] Room Air 05/24/24 05:35 05/24/24 08:00 05/24/24 09:09 Temperature 97.9 F 99.6 F Pulse Rate Pulse Rate [Right Pulse Oximeter] 84 85 84 Respiratory Rate 20 16 20 Blood Pressure [Le ft Arm] Blood Pressure [Ri ght Arm] 141/71 H 149/66 H Pulse Oximetry 92 94 Oxygen Delivery [facility]v [facility] Room Air Room Air 05/24/24 10:38 Temperature 98.6 F Pulse Rate Pulse Rate [Right Pulse Oximeter] 95 Respiratory Rate 16 Blood Pressure [Le ft Arm] 145/68 H Blood Pressure [Ri ght Arm] Pulse Oximetry 94 Oxygen Delivery Me thod Room Air Labs/Imaging Labs Labs: White blood cell count is 9.3. CRP is 12 from 21. Progress Note:A&P Assessment and plan (1) Atrial fibrillation with RVR: Status: Acute (2) Hypokalemia: Status: Acute (3) Hx of appendectomy: Status: Acute Plan The patient is an 83-year-old female who is postop day 4 from laparoscopic appendectomy from perforated appendicitis. Overall she is doing much better. No signs of infection. She has return of bowel function and has not had nausea since last evening. I think she certainly can advance to a soft diet. -okay to continue Eliquis. -will discharge home on oral antibiotics for a total course of 10 days.
[2024-05-24] MEDS: POTASSIUM CHLORIDE 10 MEQ CAPSULE ER 20 MEQ PO (17:49)
[2024-05-24] MEDS: POTASSIUM CHLORIDE 10 MEQ/100 ML PIGGYBACK 100 MEQ IVPB ×2 (17:49→20:14)
--- NOTE | 2024-05-24 20:17 | PC.NURSE ---
Nursing Care Hours: [id number] pt this shift calm and cooperative, alert and oriented. VSS. SB to independent ambulation. Walk the june x1. Pt did not want to go far d/t having frequent urgent loose stool. Incontinent x1. Pain tolerable per pt at a 4/10. Declined pain meds until HS. Advanced diet to soft low fiber, tolerating well. R AC occluded, new IV placed by house sup. Tele shows NSR with first degree block, BBB, and prolong QT.
[2024-05-24] MEDS: 0.9 % SODIUM CHLORIDE 250 ml IV (23:24)
[2024-05-25 03:00] VITALS: BP 142/68; PULSE 78; RESP 16; TEMP 36.9; O2SAT 94
[2024-05-25] MEDS: PIPERACILLIN/TAZOBACTAM 3.375 GM in 0.9 % SODIUM CHLORIDE Mini-bag 100 ML IVPB (05:13)
--- NOTE | 2024-05-25 05:30 | PC.NURSE ---
[id number] Pt slept well during night between cares/meds, slept in recliner majority of night. did not request any prn pain medication. denies N/V, chest pain, headache. decrease stool output during shift, only had 2 BM's, loose. lap sites C/D/I.
[2024-05-25 07:00] VITALS: PULSE 71
[2024-05-25 07:45] VITALS: BP 147/72; PULSE 84; RESP 18; TEMP 36.4; O2SAT 95
[2024-05-25] MEDS: METOPROLOL SUCCINATE (XL) 25 MG TAB PO (08:36)
[2024-05-25] MEDS: APIXABAN 5 MG TABLET PO (08:37)
[2024-05-25] MEDS: SODIUM CHLORIDE 0.9 % (FLUSH) 10 ML SYRINGE 5 ML IVF (08:37)
[2024-05-25] MEDS: POTASSIUM CHLORIDE 10 MEQ CAPSULE ER 20 MEQ PO (08:37)
[2024-05-25 09:14] LABS: Basophils Absolute Auto 0.02 K/uL (0.00-0.30); Basophils Percent Auto 0.2 % (0.0-3.0); Eosinophils Absolute Auto 0.31 K/uL (0.00-0.50); Hemoglobin* 12.4 gm/dL (12.0-16.0); Immature Granulocytes Abs Auto 0.79 K/uL (0.00-0.30); Immature Granulocytes Pct Auto 7.5 %; Mean Corpuscular HGB Conc 34 gm/dL (32-36); Mean Corpuscular Hemoglobin 31 pg (26-34); Mean Corpuscular Volume 89 fL (80-100); Monocytes Percent Auto 5.8 % (0.0-11.0); Neutrophils Absolute Auto 7.19 K/uL (1.7-7.0); Neutrophils Percent Auto 68.5 % (42.0-72.0); Platelet Count* 279 K/uL (140-440); RDW Coefficient of Variation % 13.7 % (11.5-15.5); Red Blood Count 4.03 m/uL (4.00-5.20)
[2024-05-25 09:24] LABS: Chloride* 106 mmol/L (96-114); Sodium* 132 mmol/L (135-149)
[2024-05-25 09:27] LABS: Creatinine* 0.7 mg/dL (0.5-1.5); Est. Creatinine Clearance* 41.49; Estimated Glomerular Filt Rate 85 ml/min
[2024-05-25 09:28] LABS: Anion Gap 7 mEq/L (7-15); Blood Urea Nitrogen* 13 mg/dL (7-30); Calcium* 8.9 mg/dL (8.4-10.6); Carbon Dioxide* 19 mmol/L (20-32); Glucose* 144 mg/dL (60-115)
[2024-05-25 09:31] LABS: C Reactive Protein* 4.8 mg/dL (0.5-1.0)
[2024-05-25 09:42] LABS: Slide Review Reflex Yes
[2024-05-25 09:43] LABS: Slide Review Acceptable Review (Acceptable)
--- NOTE | 2024-05-25 10:22 | PM.GSPN ---
Subjective Subjective Date Seen: 05/25/24 Interval history: Shirlene is doing well today. She did not have any nausea overnight. She is continuing to have diarrhea. She states that she normally has stools that are on the looser side. She feels as though her abdominal distention is getting better overall. Minimal pain other than crampy pain when she needs to have a bowel movement. Exam Narrative: Exam Narrative: General: No acute distress Abdomen: Softer and less distended today. Incisions without erythema. Bruising noted over lower abdomen. Abdomen is nontender. Const: Vital Signs, click to edit/add: Vital Signs - 24 hr 05/24/24 10:38 05/24/24 15:00 05/24/24 16:00 Temperature 98.6 F 99.4 F Pulse Rate 78 Pulse Rate [Right Pulse Oximeter] 95 77 Respiratory Rate 16 18 Blood Pressure [Le ft Arm] 145/68 H Blood Pressure [Ri ght Arm] 131/70 Pulse Oximetry 94 93 Oxygen Delivery Tn [facility]od Room Air Room Air 05/24/24 17:00 05/24/24 19:00 05/24/24 21:02 Temperature 99.3 F Pulse Rate 78 Pulse Rate [Right Pulse Oximeter] 77 79 Respiratory Rate 18 18 Blood Pressure [Le ft Arm] 140/73 H Blood Pressure [Ri ght Arm] Pulse Oximetry 94 Oxygen Delivery Tn [facility]od Room Air 05/24/24 22:59 05/24/24 23:00 05/25/24 03:00 Temperature 98.1 F 98.4 F Pulse Rate 81 Pulse Rate [Right Pulse Oximeter] 79 78 Respiratory Rate 18 16 Blood Pressure [Le ft Arm] 142/68 H Blood Pressure [Ri ght Arm] 149/79 H Pulse Oximetry 94 94 Oxygen Delivery Tn thod Room Air Room Air 05/25/24 07:00 05/25/24 07:45 Temperature 97.6 F Pulse Rate 71 Pulse Rate [Right Pulse Oximeter] 84 Respiratory Rate 18 Blood Pressure [Le ft Arm] Blood Pressure [Ri ght Arm] 147/72 H Pulse Oximetry 95 Oxygen Delivery Tn thod Room Air Labs/Imaging Labs Labs: White blood cell count is normal and stable. CRP has trended down to 4.8 from 12.6. She remains hypokalemic. Progress Note:A&P Assessment and plan (1) Hypokalemia: Status: Acute (2) Hx of appendectomy: Status: Acute Plan The patient is an 83-year-old female who is now 5 days postop status post laparoscopic appendectomy for perforated appendicitis with feculent peritonitis. She is doing well overall. -continue regular diet upon discharge -recommend 10 days total of antibiotics. Continue for 5 days as an outpatient. I did talk to the patient about risk of C diff as well as starting a probiotic while she is on antibiotics. Of note, she was checked for C diff and was negative. - AFib is controlled. She is on anticoagulation. Management per hospitalist. -hypokalemia management per hospitalist. -okay to discharge home today. Patient does have support at home. We reviewed postoperative instructions together today. She will follow up in clinic or should call hospital with any concerns in the meantime.
--- NOTE | 2024-05-25 10:39 | PM.DS1 ---
DS: Providers Provider Date Seen: 05/25/24 Date of admission: 05/20/24 13:54 Primary care physician: Olesya Rivera PA-C Admitting Clinician: Fern Leon MD Attending Physician on discharge: Fern Leon MD Date of Discharge: 05/25/24 DS: Diagnosis Discharge Diagnosis (1) Atrial fibrillation with RVR: Status: Acute Problem details: - new diagnosis early 05/23/24, approximately 24 hours of this rhythm - converted back to sinus rhythm while on diltiazem gtt - reassuring TTE 05/24/24 - back to home Metoprolol dosing on 05/24/24, no recurrence of A fib - Eliquis initiated for anticoagulation ([id number] of 4), 14 day Zio patch to assess rhythm further - needs to discuss long-term anticoagulation plan with PCP and/or Cardiology (2) Hypokalemia: Status: Acute Problem details: - replaced and followed, magnesium normal (3) Hx of appendectomy: Status: Acute Problem details: - 05/20/24, Dr. Leon - perforated (4) Hyperlipidemia: Status: Acute Problem details: - will restart statin when tolerating po (5) Essential hypertension: Status: Acute Problem details: - stable on home dose of Metoprolol (6) Hyponatremia: Status: Acute Problem details: - presumably secondary to increased free water intake during illness - amebr of 129, up to 132 upon discharge (asymptomatic) DS: Summary Hospital Course Hospital Course: Shirlene was admitted to the hospital on 05/19 for appendicitis. She underwent an laparoscopic appendectomy with Dr. Leon of general surgery on 05/20/2024; perforation of appendix noted during procedure. Postoperatively, hospitalist team was consulted for electrolyte abnormalities. Potassium supplemented during stay (was on clear liquids postoperatively, also had intermittent diarrhea - negative C diff), Magnesium wnl. Sodium improved from 129 -->134. On postoperative day 3, Shirlene noted to be in a fib/RVR, had approximately 24 hours of this rhythm; converted back to sinus rhythm on diltiazem drip. Discussed risks and benefits of anticoagulation with patient and family; Eliquis was initiated for [id number] of 4. No recurrence of a fib/RVR during stay. Discharging home on previous dose of Metoprolol and Zio patch. Close f/u with PCP for Zio patch results and anticoagulation discussion. Status at Discharge Functional status at discharge: independent ambulation Overall status at discharge: patient is progressing back to baseline Time Spent with Patient Time attestation: Total time spent providing and/or coordinating discharge services: Time spent: Greater than 30 minutes Specific discharge activities: Medication management and reconciliation, education to patient and son Exam Narrative: Exam Narrative: GEN: Alert and oriented, sitting comfortably in bedside chair HEENT: EOMIs bilaterally, no scleral icterus CV: RRR, No concerning murmurs R: LCTA bilaterally without concerning wheezing Ab: Soft with mild distention and mild tenderness to palpation, + bowel sounds Skin: No concerning skin lesions or rashes on exposed skin Neuro: Nonfocal, ambulating with a gait Psych: Appropriate Const: Vital Signs, click to edit/add: Vital Signs - 24 hr 05/24/24 15:00 05/24/24 16:00 05/24/24 17:00 Temperature 99.4 F Pulse Rate 78 Pulse Rate [Right Pulse Oximeter] 77 77 Respiratory Rate 18 18 Blood Pressure [Le ft Arm] Blood Pressure [Ri ght Arm] 131/70 Pulse Oximetry 93 Oxygen Delivery Me thod Room Air 05/24/24 19:00 05/24/24 21:02 05/24/24 22:59 Temperature 99.3 F 98.1 F Pulse Rate 78 Pulse Rate [Right Pulse Oximeter] 79 79 Respiratory Rate 18 18 Blood Pressure [Le ft Arm] 140/73 H Blood Pressure [Ri ght Arm] 149/79 H Pulse Oximetry 94 94 Oxygen Delivery Me thod Room Air Room Air 05/24/24 23:00 05/25/24 03:00 05/25/24 07:00 Temperature 98.4 F Pulse Rate 81 71 Pulse Rate [Right Pulse Oximeter] 78 Respiratory Rate 16 Blood Pressure [Le ft Arm] 142/68 H Blood Pressure [Ri ght Arm] Pulse Oximetry 94 Oxygen Delivery Me thod Room Air 05/25/24 07:45 Temperature 97.6 F Pulse Rate Pulse Rate [Right Pulse Oximeter] 84 Respiratory Rate 18 Blood Pressure [Le ft Arm] Blood Pressure [Ri ght Arm] 147/72 H Pulse Oximetry 95 Oxygen Delivery Me thod Room Air DS: Data Data Completed and Pending Labs on day of discharge: Labs from last 24 hours 05/25/24 05/24/24 09:02 13:59 WBC 10.50 RBC 4.03 Hgb 12.4 Hct 36.0 MCV 89 MCH 31 MCHC 34 RDW Coeff of Isa 13.7 Plt Count 279 Neut % (Auto) 68.5 Lymph % (Auto) 15.0 L [place] % (Auto) 5.8 Eos % (Auto) 3.0 Baso % (Auto) 0.2 Neut # (Auto) 7.19 H Lymph # (Auto) 1.60 [place] # (Auto) 0.60 Eos # (Auto) 0.31 Baso # (Auto) 0.02 Abs Immat Gran (auto) 0.79 H Imm/Tot Granulo (auto) 7.5 Diff Slide Review Acceptable Review Sodium 132 L Potassium 3.0 L 3.0 L Chloride 106 Carbon Dioxide 19 L Anion Gap 7 BUN 13 Creatinine 0.7 Estimated Creat Clear 41.49 Estimated GFR 85 Glucose 144 H Calcium 8.9 C-Reactive Protein 4.8 H Discharge Plan Discharge Disposition: Home, Self-Care Date of Admission: 05/20/24 13:54 Attending Provider on Discharge: Saima Ruvalcaba Primary Care Provider: Olesya Rivera Condition: Improved Anticipated Discharge Date/Time: 05/25/24 10:38 Discharge Medications: New potassium chloride 10 mEq Capsule, Extended Release 20 meq PO BIDWM 3 Days Qty: 12 0RF Rx Instructions: 2 tabs twice/day over the weekend acetaminophen 325 mg Tablet 650 mg PO Q6H PRNQty: 30 0RF Eliquis 5 mg Tablet 5 mg PO BID Qty: 60 0RF amoxicillin-pot clavulanate 875-125 mg tablet 1 tab PO BID 5 Days Qty: 10 0RF Continued atorvastatin 80 mg tablet 80 mg PO HS metoprolol succinate 25 mg tablet extended release 24 hr 25 mg PO DAILY calcium carbonate [Oyster Shell Calcium] 500 mg calcium (1,250 mg) tablet 500 mg PO BID cholecalciferol (vitamin D3) 50 mcg (2,000 unit) capsule 50 mcg PO DAILY Held aspirin [Ecotrin Low Strength] 81 mg tablet,delayed release (DR/EC) 81 mg PO DAILY Hold Instructions: hold while on Eliquis Discharge Orders: Discharge Order (Routine); Ordered 05/25/24 Ordered By: Saima Ruvalcaba Patient Education: Acetaminophen (By mouth), Potassium Chloride (By mouth), Amoxicillin/Clavulanate Potassium (By mouth), Apixaban (By mouth), Laparoscopic Appendectomy (DC), Post-Operative Instructions: Appendectomy Additional Instructions: Hospital updates: - NEW medication: Eliquis (blood thinner, take this INSTEAD of aspirin) twice/day (sent to [facility]). You and your PCP can discuss this medication intermission coordinator - NEW: Potassium twice/day for 3 days (sent to [facility]) because your potassium was a little low here - NEW: antibiotics, twice/day for 5 more days. Make sure you're on a PROBIOTIC while on this to help with stomach upset/diarrhea - NEW: Heart rate monitor for 2 weeks, your PCP will get results and help you with a plan for Cardiology - Only change to home medications: hold Aspirin - stay on a soft diet, good to add in a banana and/or potatoes daily for potassium POSTSURGICAL instructions: For pain, you have not required narcotics in the past 3 days, so continue to use Tylenol and/or Ibuprofen, be sure to not exceed greater than 4 g of Tylenol in a 24 hour period. You have Steri-Strips dressings in place, allow these to fall off on their own. Okay to shower. Do not soak in a bath or swim for 2 weeks. Follow-up with Dr. Leon in 2-3 weeks. Please call if you are experiencing severe pain, nausea, vomiting, difficulty urinating, fever or not had a bowel movement in 4 days after surgery. Activity Level: No strenuous activity Activity Detail: Activity as tolerated. Avoid strenuous activity. No lifting greater than 20 lb for 2 weeks. Discharge Diet: Regular Follow Up Appointments: Fern Leon MD [Staff Physician] - 06/06/24 9:00 am ([facility] for postop follow-up.) Olesya Rivera PA-C [Primary Care Provider] - 05/29/24 10:10 am ([facility] for follow-up.) Forms: Siving Egil [place] Info Instructions
[2024-05-25] MEDS: POTASSIUM BICARB 25 MEQ EFFERVESCENT TAB 50 MEQ PO (10:47)
[2024-05-25 11:36] VITALS: BP 153/87; PULSE 87; RESP 16; TEMP 36.7; O2SAT 95
--- NOTE | 2024-05-25 12:40 | PC.NURSE ---
Pt alert and oriented. Pt had complaints of pain ranging 1-3; Pt did not want medication and tolerating well. Pt up independently in room. Pt's IV's removed; catheters intact. Pt's family at bedside during discharge. ZIO patch placed during discharge.
== END 2024-05-25 12:15 | disposition home or self-care (01) | DRG 398 ==
LOC: ED 21:12 → SS 23:23 → MEDSURG 23:24 → SS 05-20 14:10 → MEDSURG 05-20 14:10
PROVIDERS: Family Medicine; Surgery; Admitting Provider Surgery; Emergency Provider Family Medicine; PCP Physician Assistant Medical; Visit Provider Surgery
PROC: 0DTJ4ZZ Resection of Appendix, Percutaneous Endoscopic Approach (ICD-10-PCS; CPT 44970; principal; 2024-05-20 07:30)
DX: K35.32 Acute appendicitis with perforation, localized peritonitis, and gangrene, without abscess (principal); E87.1 Hypo-osmolality and hyponatremia; I97.191 Other postprocedural cardiac functional disturbances following other surgery; I48.91 Unspecified atrial fibrillation; R19.7 Diarrhea, unspecified; E87.6 Hypokalemia; I10 Essential (primary) hypertension; I35.0 Nonrheumatic aortic (valve) stenosis; I25.2 Old myocardial infarction; I25.10 Atherosclerotic heart disease of native coronary artery without angina pectoris; I44.0 Atrioventricular block, first degree; I44.7 Left bundle-branch block, unspecified; Z95.5 Presence of coronary angioplasty implant and graft; E78.5 Hyperlipidemia, unspecified
CPT/HCPCS: 00840; 36415; 71045; 74177; 80048; 80053; 80076; 81001; 81003; 83605; 83690; 83735; 84132; 84300; 84443; 84484; 85025; 86140; 87086; 87493; 88304; 93005; 93246; 93306; 99100; 99140; 99285; A9270; G0378; J0665; J1100; J1171; J1650; J1885; J2405; J2543; J2704; J2710; J3010; J3480; J3490; J7030; J7050; Q9967

== ENCOUNTER 2024-10-24 09:30 | Outpatient (RCR) | payer MEDICARE, SELFPAY | END 2024-11-12 12:41 | disposition home or self-care (01) | PROVIDERS: PCP Physician Assistant Medical; Visit Provider Physician Assistant | DX: M79.641 Pain in right hand (principal); M79.642 Pain in left hand; Z51.89 Encounter for other specified aftercare | CPT/HCPCS: 97035; 97110; 97140; 97165; 97535; X5282 ==